=== PATIENT | female | born 1955 | race Caucasian/White ===

== ENCOUNTER 2016-10-01 12:43 | Inpatient (IN) | payer MEDICAID, OTHER ==
[~2016-10-01] VITALS: Ht 160 cm; Wt 135.4 kg
[2016-10-01] VITALS (18 sets, daily range): BP systolic 88–107; BP diastolic 44–59; O2SAT 98
[2016-10-01] MEDS ORDERED: ALBUTEROL 90 MCG/ACT 8GM HFA INHALER INH PRN (14:30)
[2016-10-01] MEDS ORDERED: DEXTROSE 50% 50 ML SYRINGE IV PRN (15:15)
[2016-10-01] MEDS ORDERED: GLUCAGON FOR INJ 1 MG VIAL (J1610) SC PRN (15:15)
[2016-10-01] MEDS ORDERED: GLUCOSE 4 GM CHEW TABLET PO PRN (15:15)
[2016-10-01 15:35] LABS: ABG BASE EXCESS -7.2 (-2.0-2.0); ABG PARTIAL PRESSURE CO2 35.1 mmHg (35.0-45.0); ABG PARTIAL PRESSURE O2 101.2 mmHg (75.0-100.0); ABG STANDARD HCO3 18.6 MEQ/L (22.0-26.0); ABG pH (ARTERIAL) 7.327 UNITS (7.350-7.450)
[2016-10-01] MEDS ORDERED: SYNT75TA PO (15:37)
[2016-10-01] MEDS ORDERED: GABA-282 PO (15:37)
[2016-10-01] MEDS ORDERED: METF500T PO (15:37)
[2016-10-01] MEDS ORDERED: ATOR1TAB21 PO (15:37)
[2016-10-01] MEDS ORDERED: ASPI81TA7 PO (15:37)
[2016-10-01] MEDS ORDERED: LOSA50TA20 PO (15:37)
[2016-10-01] MEDS ORDERED: OMEP40CA2 PO (15:37)
[2016-10-01] MEDS ORDERED: PIOG30TA4 PO (15:37)
[2016-10-01] MEDS ORDERED: HEPA50VL SC (15:44)
[2016-10-01] MEDS ORDERED: ZOSY3INJ2 IV (15:44)
[2016-10-01] MEDS ORDERED: INSURSD SC (15:44)
[2016-10-01] MEDS ORDERED: IPRASOL4 INH (15:44)
[2016-10-01] MEDS ORDERED: PROT40IN4 IV (15:44)
[2016-10-01] MEDS: IPRATROPIUM 0.5MG/ALBUTEROL 2.5MG INH SOL UD 3ML (DUONEB)(J7620) NEB SCH ×3 (16:03→23:29)
[2016-10-01 16:04] LABS: MEAN CORPUSCULAR HEMOGLOBIN 29.5 pg (27.0-33.0); MEAN CORPUSCULAR HGB CONC 32.7 g/dl (32.0-36.5); MEAN CORPUSCULAR VOLUME 90.4 fl (80.0-96.0); RED CELL DISTRIBUTION WIDTH 14.3 % (11.5-14.5); WHITE BLOOD COUNT 13.5 K/mm3 (4.0-10.0)
--- NOTE | 2016-10-01 16:05 | HPEPDOC ---
General Date of Admission Oct 01, 2016 at 14:47 Chief Complaint The patient is a 61-year-old female admitted with a reason for visit of Septic Shock / Pnemonia. History of Present Illness 61-year-old female with past medical history of hypertension, diabetes mellitus , dyslipidemia, hypothyroidism and morbid obesity was initially admitted at [facility] after she was found unresponsive at her home. According to reports from [facility], the patient stated that she remembers laying down on the floor to watch TV with her dog, and the next thing she remembers is the EMS personnel coming into her home. Upon arrival of EMS, the patient was apparently found with urine and feces covered clothing. The patient is a poor historian and does not recollect the exact events leading up to her hospitalization. However, the patient denied any suicidal, homicidal ideations, any ingestion of drugs or other substances, or any focal complaints of fevers, chills, chest pain, shortness of breath, abdominal pain, nausea or vomiting. At [facility], the patient was found to be hypothermic with a temperature of 92F, and slightly elevated creatine kinase markers. A chest x- ray was done which revealed small infiltrate in the right lower lobe. The patient was subsequently admitted for further management on 09/30. Overnight, the patient became increasingly hypotensive, requiring central line placement and vasopressor therapy. In addition, the patient became more obtunded and the patient was subsequently transferred to [facility] for a higher level of care. At this time, the patient does appear drowsy, however is arousable and answers questions appropriately when prompted repeatedly. Lab work and imaging have been ordered, and the patient will be admitted under the service of Dr. Soto for further evaluation and management of the patient's metabolic encephalopathy 2/2 sepsis. Home Medications Scheduled (Zosyn 3-0.375 gm) 1 Inj Inj 1 INJ IV Q6H (Reported) STARTED AT [facility] Albuterol/Ipratropium (Ipratropium [place]/Albut 0.5-2.5 (3) mg/3Ml) 1 Naz Naz 1 NAZ INH Q6H (Reported) STARTED AT [facility] Aspirin (Aspirin) 81 Mg Tab 81 MG PO DAILY (Reported) HOME MED Atorvastatin Calcium (Atorvastatin Calcium) 20 Mg Tab 20 MG PO QHS (Reported) HOME MED Gabapentin (Gabapentin) 300 Mg Cap 300 MG PO BID (Reported) HOME MED Heparin Sod (Porcine) (Heparin Sodium) 5,000 Unit/Ml Inj 5,000 UNIT SC Q12H ( Reported) STARTED AT [facility] Insulin Human Regular (Humulin R) 1 Units/0.01 Ml Soln 0 SC ACHS (Reported) PER SLIDING SCALE, STARTED AT [facility] Levothyroxine Sodium (Synthroid) 75 Mcg Tab 75 MCG PO DAILY (Reported) HOME MED Losartan Potassium (Losartan Potassium) 50 Mg Tab 50 MG PO DAILY (Reported) HOME MED Metformin Hydrochloride (Metformin HCl) 500 Mg Tab 1,500 MG PO DAILY (Reported ) HOME MED Omeprazole (Omeprazole) 40 Mg Cap 40 MG PO DAILY (Reported) HOME MED Pantoprazole Sodium (Protonix IV) 40 Mg Inj 40 MG IV DAILY (Reported) STARTED AT [facility] Pioglitazone Hydrochloride (Pioglitazone HCl) 30 Mg Tab 30 MG PO DAILY ( Reported) HOME MED Allergies Coded Allergies: No Known Allergies (Unverified , 10/01/16) Past Medical History Medical History As noted in HPI. Surgical History Total abdominal hysterectomy Family History Significant Family History: No pertinent family hx Social History * Smoker: Denies Alcohol: occationally Drugs: denies Review of Symptoms Other systems Unable to fully and reliably obtained secondary to patient's clinical condition. Physical Examination General Exam: Positive: Cooperative, No Acute Distress, Other (morbidly obese patient, appears to be drowsy, however does answer questions purposely when repeatedly prompted.) ENT Exam: Positive: Atraumatic, Other ENT (dry appearing mucous membranes) Neck Exam: Negative: JVD Chest Exam: Positive: Diminished Heart Exam: Positive: Normal S1, Normal S2, Rate Normal Telemetry: Positive: Sinus Abdomen Exam: Positive: Soft, Negative: Tenderness Extremity Exam: Negative: Tenderness Skin Exam: Positive: Other skin issue (patient noted to have multiple excoriations all over the skin including across the chest, under the breasts, and under the skin folds of the abdomen, and groin. In addition she also has excoriations noted on the lateral aspects of both knees bilaterally, as well as her feet which appear to have some wounds along the plantar and dorsal surface. No active purulent drainage or bleeding noted from the sites. However, there is some erythema surrounding the excoriations.) Vital Signs As noted in the EMR. Laboratory Data Labs 24H Laboratory Tests 2 10/01/16 15:19: 10/01/16 15:26: Arterial Blood pH 7.327L, Arterial Blood Partial Pressure CO2 35.1, Arterial Blood Partial Pressure O2 101.2H, Arterial Blood Total CO2 19.0L, Arterial Blood HCO3 18.0L, Arterial Blood Base Excess -7.2L, Arterial Blood Oxygen Saturation 97.5, Blood Gas Bicarbonate Standard 18.6L Microbiology Microbiology 10/01/16 Blood Culture, Received Pending 10/01/16 Blood Culture, Received Pending Plan / VTE VTE Prophylaxis Ordered?: Yes Plan Plan Sepsis possibly secondary to community-acquired pneumonia We will admit the patient to the ICU Chest x-ray from [facility] suggestive of right lower lobe infiltrate Patient recently requiring levophed at 8 g this a.m. at [facility]- however, she is off this at this time We will continue IV fluid hydration at 150 mL an hour Patient noted to have minimal urinary output since this a.m.-we will continue to monitor I's and O's Blood cultures unrevealing from [facility]. thus far, we will order a set of blood cultures, UA here as well GI neg for C. Diff, Resp Panel negative at [facility] Patient does have other possible sources of infection, which include multiple excoriations noted all over her body Empirically cover with vancomycin and Zosyn for now We will continue to monitor the patient's clinical condition Metabolic encephalopathy Possibly secondary to sepsis as outlined above However given the patient's morbid obesity, I do suspect that she may have underlying obstructive sleep apnea We will order an ABG here to see if she is retaining any CO2 TSH, ammonia levels within normal limits from lab work drawn in [facility] CT scan of the head with no acute findings from [facility] We will order an MRI of the brain to follow-up if the patient's mentation does not improve Diabetes mellitus Hemoglobin A1c noted to be 8.0 at [facility] Patient previously on oral hypoglycemics at home We will continue the patient on insulin sliding scale for now Dyslipidemia Takes statin at home Will withhold by mouth medications for now until the patient becomes more alert Hypertension We will hold antihypertensives at this time, as the patient has been running a low blood pressure requiring levophed this morning Hypothyroidism TSH noted to be within normal limits at [facility] We will continue levothyroxine intravenously here GI prophylaxis-Protonix DVT prophylaxis-heparin subcutaneous The patient will be admitted under the service of Dr. Soto, who will follow this patient starting 10/02 at 7 AM. CANDACE BROWN MD Oct 01, 2016 16:05
[2016-10-01 16:08] LABS: ALBUMIN/GLOBULIN RATIO 0.87 (1.00-1.93); BILIRUBIN,TOTAL 0.6 MG/DL (0.2-1.0); CALCIUM LEVEL 6.5 MG/DL (8.8-10.2); CREATININE FOR GFR 1.52 MG/DL (0.55-1.02); FREE T4 1.54 NG/DL (0.76-1.46); GLOMERULAR FILTRATION RATE 36.8 (>45); POTASSIUM SERUM 3.9 MEQ/L (3.5-5.1); TOTAL PROTEIN 4.3 GM/DL (6.4-8.2)
[2016-10-01] MEDS ORDERED: CALCIUM GLUCONATE 1,000 MG in D5W MINI-BAG PLUS 100 ML IV ONE (16:30)
--- NOTE | 2016-10-01 16:42 | PHACANCOPD ---
PHARMACY VANCOMYCIN DOSING Pt Demographics Demographics Patient Age:61 , Weight:130.900 , Gender: female Adjusted Body Weight Date: 10/01/16, Adjusted Body Weight: [83.8] Kg Events Past 24 Hours Events Past 24 Hours: YES: Change in CrCl, Elevation in WBC, NO: Dialysis, Diuretic Therapy, Fever, Other, Pending Diagnostics, Pending Procedures Vancomycin Vancomycin indication: sepsis Vancomycin Target Ranges: 15-20 mcg/ml Vancomycin Load Y/N: No Load Dose Date Time Vancomycin Load Dose: Date: Time: Vancomycin Dose Date: 10/01/16. Current Vancomycin Dose: [1g IV q12h @17] Intermittent Dosing?: No Labs Labs Item Value Date Time White Blood Count 13.5 K/mm3 H 10/01/16 1519 Creatinine 1.52 MG/DL H 10/01/16 1519 Vital Signs Label Value Date Time Patient Temperature 99.8 degrees F 10/01/16 1501 Temperature Source Skin 10/01/16 1501 Micro Microbiology 10/01/16 Blood Culture, Received Pending 10/01/16 Blood Culture, Received Pending Creatinine Clearance Date:10/01/16. Creatinine Clearance: [50 ml/min using adjusted BW]. Assessment and Plan Maintaining Current Dose?: Yes Reason for dose change: No Dose Change Pharmacist Note Pharmacist Note 3Date: 10/01/16. Pharmacist note: pt was transferred from [facility] for sepsis, she has been started on Zosyn and Vancomycin. Pt only received ~300mg of vancomycin IV prior to transfer to [facility]. I have started her 1g IV q12h dosing to start this afternoon. Pt does not have any medical hx at our facility. I will reassess her renal function tomorrow and adjust dosing/order troughs as necessary. Obi Atkins Pharm.D. Oct 01, 2016 16:42
[2016-10-01] MEDS: LEVOTHYROXINE 100 MCG (0.1MG) VIAL IV SCH (16:47)
[2016-10-01] MEDS: PIPERACILLIN/TAZOBACTAM SOD 3.375 GM in D5W MINI-BAG PLUS 50 ML IV SCH ×2 (16:50→22:30)
[2016-10-01] MEDS: NS 1,000 ML IV SCH ×2 (18:17→22:30)
[2016-10-01] MEDS: NOREPINEPHRINE BITARTRATE 8 MG in D5W 500 ML IV SCH (18:23)
[2016-10-01] MEDS: VANCOMYCIN HCL 1,000 MG, VIAL MATE ADAPTER 1 EACH in D5W 250 ML IV SCH (18:34)
[2016-10-01] MEDS: HumaLOG INSULIN (NovoLOG) PER UNIT SC SCH (19:26)
[2016-10-01] MEDS: NYSTATIN 100,000 UNITS/GM TOPICAL PWD 15 GM TOP SCH (22:29)
[2016-10-01] MEDS: HEPARIN SOD (PORCINE) 5000 UNITS/ML VIAL SC SCH (22:30)
[2016-10-02] VITALS (36 sets, daily range): BP systolic 76–116; BP diastolic 40–59; O2SAT 97–99
[2016-10-02] MEDS: HumaLOG INSULIN (NovoLOG) PER UNIT SC SCH ×5 (01:01→23:45)
[2016-10-02] MEDS: IPRATROPIUM 0.5MG/ALBUTEROL 2.5MG INH SOL UD 3ML (DUONEB)(J7620) NEB SCH ×6 (03:29→23:38)
[2016-10-02] MEDS: PIPERACILLIN/TAZOBACTAM SOD 3.375 GM in D5W MINI-BAG PLUS 50 ML IV SCH ×4 (04:08→21:24)
[2016-10-02] MEDS: NS 1,000 ML IV SCH ×2 (04:10→11:55)
[2016-10-02] MEDS: VANCOMYCIN HCL 1,000 MG, VIAL MATE ADAPTER 1 EACH in D5W 250 ML IV SCH ×2 (05:27→16:35)
[2016-10-02] MEDS: HEPARIN SOD (PORCINE) 5000 UNITS/ML VIAL SC SCH ×3 (05:27→21:23)
[2016-10-02 05:42] LABS: MEAN CORPUSCULAR HEMOGLOBIN 28.8 pg (27.0-33.0); MEAN CORPUSCULAR HGB CONC 32.1 g/dl (32.0-36.5); MEAN CORPUSCULAR VOLUME 89.7 fl (80.0-96.0); RED CELL DISTRIBUTION WIDTH 14.8 % (11.5-14.5); WHITE BLOOD COUNT 11.7 K/mm3 (4.0-10.0)
[2016-10-02 05:57] LABS: ALBUMIN 1.8 GM/DL (3.2-5.2); ALBUMIN/GLOBULIN RATIO 0.82 (1.00-1.93); BILIRUBIN,TOTAL 0.5 MG/DL (0.2-1.0); CALCIUM LEVEL 6.7 MG/DL (8.8-10.2); CREATININE FOR GFR 1.63 MG/DL (0.55-1.02); GLOMERULAR FILTRATION RATE 33.9 (>45); POTASSIUM SERUM 3.6 MEQ/L (3.5-5.1)
[2016-10-02 06:03] LABS: ABG BASE EXCESS -5.2 (-2.0-2.0); ABG HCO3 18.9 MEQ/L (22.0-26.0); ABG PARTIAL PRESSURE CO2 31.8 mmHg (35.0-45.0); ABG STANDARD HCO3 20.1 MEQ/L (22.0-26.0); ABG TOTAL CO2 19.9 MEQ/L (23.0-31.0); ABG pH (ARTERIAL) 7.392 UNITS (7.350-7.450)
--- NOTE | 2016-10-02 08:36 | REP ---
Clinical: Dyspnea. Pneumonia. Comparison: None. Findings: Right IJ line with tip in the SVC/right atrium. Cardiomegaly is suggested. No obvious focal consolidation along with scattered atelectasis cannot be excluded. No effusion. No pneumothorax. Skeletal structures grossly intact. Impression: Limited portable examination. Cannot exclude cardiomegaly or scattered atelectasis. Signed by Jesus Manuel Wilson MD 10/02/2016 08:28 A
[2016-10-02] MEDS: NYSTATIN 100,000 UNITS/GM TOPICAL PWD 15 GM TOP SCH ×2 (08:42→21:23)
[2016-10-02] MEDS: LEVOTHYROXINE 100 MCG (0.1MG) VIAL IV SCH (08:43)
[2016-10-02] MEDS: PANTOPRAZOLE 40MG INJ (PROTONIX) (C9113) IV SCH (08:43)
--- NOTE | 2016-10-02 09:45 | IPNPDOC ---
Subjective Date Seen The patient was seen on 10/02/16. Subjective Chief Complaint/HPI The patient is a 61-year-old female admitted with a reason for visit of Septic Shock / Pnemonia. Events since last encounter patient remains obtunded. sometimes opening eyes when spoken too, trying to localize pain with left hand not much movement on the right hand. BPs better this am will try to taper off norepinephrine. Objective Physical Examination General Exam: Positive: No Acute Distress, Other (obtunded. opening eyes when spoken to) Eye Exam: Positive: Conjunctiva & lids normal, PERRLA ENT Exam: Positive: Atraumatic, Mucous membr. moist/pink Neck Exam: Negative: JVD Chest Exam: Positive: Diminished, Rales, Wheezing Heart Exam: Positive: Normal S1, Normal S2, Rate Normal Telemetry: Positive: No significant arrhythmia Abdomen Exam: Positive: Other (abdominal fat fold with fungal infection), Soft , Negative: Tenderness Extremity Exam: Negative: Tenderness Skin Exam: Positive: Other skin issue (patient noted to have multiple excoriations all over the skin including across the chest, under the breasts, and under the skin folds of the abdomen, and groin. In addition she also has excoriations noted on the lateral aspects of both knees bilaterally, as well as her feet which appear to have some wounds along the plantar and dorsal surface. No active purulent drainage or bleeding noted from the sites. However, there is some erythema surrounding the excoriations.) Assessment /Plan Problems (1) Acute metabolic encephalopathy Status: Acute Problem Text: due to sepsis abg did not show any co2 retention will repeat in the pm. (2) Septic shock Status: Acute Problem Text: source on infection either lungs or skin will continue on zosyn and vanco and ivf. try to wean off NE. (3) Morbid obesity Status: Chronic (4) Acute kidney injury Status: Acute Problem Text: will continue to monitor intake and output. have no baseline creatinine at this point. (5) Diarrhea Status: Acute Problem Text: enteropathogenic e coli in GI panel . (6) Diabetes Status: Chronic Problem Text: lispro as per sliding scale. (7) Hyperlipidemia Status: Chronic (8) Hypothyroid Status: Chronic (9) Decubitus ulcer Status: Acute Problem Text: present since admission. just below both buttocks. stage 2 Plan/VTE VTE Prophylaxis Ordered?: Yes Plan/Urinary Catheter Reason for insertion/continuin: Critical Pt monitoring VS, I&O, [facility] Vital Signs/I&O Vital Signs Date Time Temp Pulse Resp B/P Pulse Ox O2 Delivery O2 Flow Rate FiO2 10/02/16 08:00 Nasal Cannula 2.0 10/02/16 07:41 98 10/02/16 06:30 103 109/52 10/02/16 04:00 99.0 16 I&O- Last 24 Hours up to 6 AM 10/02/16 06:00 Intake Total 2048.3 ml Output Total 900 ml Balance 1148.3 ml Laboratory Data 24H LABS Laboratory Tests 2 10/01/16 15:19: Blood Urea Nitrogen 49H, Creatinine 1.52H, Sodium Level 143, Potassium Level 3.9 , Chloride Level 109H, Carbon Dioxide Level 19L, Calcium Level 6.5L, Aspartate Amino Transf (AST/SGOT) 47H, Alanine Aminotransferase (ALT/SGPT) 74, Alkaline Phosphatase 69, Total Bilirubin 0.6, Triglycerides Level 61, Cholesterol Level 105, HDL Cholesterol 67, LDL Cholesterol 25.8, Total Protein 4.3L, Albumin 2.0L , Albumin/Globulin Ratio 0.87L, Ammonia 18, Anion Gap 15, Cholesterol/HDL Ratio 1.567, Estimated Mean Plasma Glucose 194H, Free Thyroxine 1.54H, Free Triiodothyronine 0.9L, Glomerular Filtration Rate 36.8L, Hemoglobin A1c 8.4H, Lactic Acid Level 0.9, Magnesium Level 2.0, Non-HDL Cholesterol (LDL + VLDL) 38 , Thyroid Stimulating Hormone (TSH) 0.700 10/01/16 15:26: Arterial Blood pH 7.327L, Arterial Blood Partial Pressure CO2 35.1, Arterial Blood Partial Pressure O2 101.2H, Arterial Blood Total CO2 19.0L, Arterial Blood HCO3 18.0L, Arterial Blood Base Excess -7.2L, Arterial Blood Oxygen Saturation 97.5, Blood Gas Bicarbonate Standard 18.6L 10/01/16 16:13: Urine Amorphous Sediment SMALLH, Urine Appearance CLOUDYH, Urine Color KENNEDY, Urine pH 5.0, Urine Specific [place] 1.021, Urine Protein 1+H, Urine Glucose (UA ) 1+H, Urine Ketones TRACEH, Urine Urobilinogen 4.0H, Urine Bilirubin 1+H, Urine Leukocyte Esterase TRACEH, Urine Bacteria (Auto) 1+H, Urine Blood 2+H, Urine Calcium Carbonate Cryst(Auto) , Urine Calcium Oxalate Cryst (Auto) , Urine Calcium Phosphate Suha (Auto) , Urine Cellular Casts , Urine Cystine Crystals , Urine Granular Casts (Auto) , Urine Hyaline Casts (Auto) 0, Urine Leucine Crystals , Urine Mucus (Auto) SMALL, Urine Nitrite NEGATIVE, Urine Oval Fat Bodies (Auto) , Urine RBC (Auto) 16H, Urine Renal Epithelial Cells , Urine Sperm (Auto) , Urine Squamous Epithelial Cells 1, Urine Transitional Epithelial Cells , Urine Trichomonas (Auto) , Urine Triple Phosphate Cryst (Auto) , Urine Tyrosine Crystals , Urine Uric Acid Crystals (Auto) , Urine WBC (Auto) 19H, Urine Waxy Casts (Auto) , Urine Yeast-Like Cells (Auto) 10/01/16 18:32: Bedside Glucose (Misc Panel) 225H 10/01/16 20:57: Urine Random Creatinine 135.0, Urine Random Sodium 10 10/02/16 00:15: Bedside Glucose (Misc Panel) 255H 10/02/16 05:23: Bedside Glucose (Misc Panel) 269H 10/02/16 05:26: Blood Urea Nitrogen 52H, Creatinine 1.63H, Sodium Level 144, Potassium Level 3.6 , Chloride Level 112H, Carbon Dioxide Level 22, Calcium Level 6.7L, Aspartate Amino Transf (AST/SGOT) 38H, Alanine Aminotransferase (ALT/SGPT) 61, Alkaline Phosphatase 64, Total Bilirubin 0.5, Total Protein 4.0L, Albumin 1.8L, Albumin/ Globulin Ratio 0.82L, Anion Gap 10, Glomerular Filtration Rate 33.9L 10/02/16 05:55: Arterial Blood pH 7.392, Arterial Blood Partial Pressure CO2 31.8L, Arterial Blood Partial Pressure O2 77.0, Arterial Blood Total CO2 19.9L, Arterial Blood HCO3 18.9L, Arterial Blood Base Excess -5.2L, Arterial Blood Oxygen Saturation 95.3, Blood Gas Bicarbonate Standard 20.1L CBC/BMP Laboratory Tests 10/01/16 15:19 Calcium Level 6.5 L, Aspartate Amino Transf (AST/SGOT) 47 H, Alanine Aminotransferase (ALT/SGPT) 74, Alkaline Phosphatase 69, Total Bilirubin 0.6, Triglycerides Level 61, Cholesterol Level 105, HDL Cholesterol 67, LDL Cholesterol 25.8, Total Protein 4.3 L, Albumin 2.0 L, Red Blood Count 3.58 L, Mean Corpuscular Volume 90.4, Mean Corpuscular Hemoglobin 29.5, Mean Corpuscular Hemoglobin Concent 32.7, Red Cell Distribution Width 14.3 10/02/16 05:26 Calcium Level 6.7 L, Aspartate Amino Transf (AST/SGOT) 38 H, Alanine Aminotransferase (ALT/SGPT) 61, Alkaline Phosphatase 64, Total Bilirubin 0.5, Total Protein 4.0 L, Albumin 1.8 L, Red Blood Count 3.38 L, Mean Corpuscular Volume 89.7, Mean Corpuscular Hemoglobin 28.8, Mean Corpuscular Hemoglobin Concent 32.1, Red Cell Distribution Width 14.8 H Microbiology Microbiology 10/01/16 Blood Culture, Received Pending 10/01/16 Blood Culture, Received Pending 10/01/16 Gastrointestinal Tract Panel (PCR) - Final, Complete Enteropathogenic E.coli 10/01/16 Urine Culture, Received Pending 10/01/16 Gram Stain, Received Pending 10/01/16 Wound Culture, Received Pending TOD BISWAS MD Oct 02, 2016 09:45
[2016-10-02] MEDS: NOREPINEPHRINE BITARTRATE 8 MG in D5W 500 ML IV SCH (16:39)
[2016-10-02 17:15] LABS: ABG BASE EXCESS -3.8 (-2.0-2.0); ABG DEVICE NASAL CANN; ABG HCO3 21.1 MEQ/L (22.0-26.0); ABG PARTIAL PRESSURE CO2 37.7 mmHg (35.0-45.0); ABG PARTIAL PRESSURE O2 79.9 mmHg (75.0-100.0); ABG STANDARD HCO3 21.3 MEQ/L (22.0-26.0); ABG TOTAL CO2 22.3 MEQ/L (23.0-31.0); ABG pH (ARTERIAL) 7.366 UNITS (7.350-7.450)
[2016-10-02] MEDS ORDERED: SODIUM CHLORIDE 0.9% INJ 10 ML SYR IV PRN (18:00)
[2016-10-02] MEDS ORDERED: SLF 3 ML SYR IV PRN (18:00)
[2016-10-02] MEDS: SLF 3 ML SYR IV SCH (21:24)
[2016-10-02] MEDS: SODIUM CHLORIDE 0.9% INJ 10 ML SYR IV SCH (21:24)
[2016-10-03] VITALS (12 sets, daily range): BP systolic 93–116; BP diastolic 48–67
[2016-10-03] MEDS: NS 1,000 ML IV SCH (03:12)
[2016-10-03 03:30] LABS: MEAN CORPUSCULAR HEMOGLOBIN 28.5 pg (27.0-33.0); MEAN CORPUSCULAR HGB CONC 32.6 g/dl (32.0-36.5); MEAN CORPUSCULAR VOLUME 87.4 fl (80.0-96.0); RED CELL DISTRIBUTION WIDTH 14.9 % (11.5-14.5); WHITE BLOOD COUNT 10.5 K/mm3 (4.0-10.0)
[2016-10-03] MEDS: IPRATROPIUM 0.5MG/ALBUTEROL 2.5MG INH SOL UD 3ML (DUONEB)(J7620) NEB SCH ×5 (03:38→19:41)
[2016-10-03] MEDS: PIPERACILLIN/TAZOBACTAM SOD 3.375 GM in D5W MINI-BAG PLUS 50 ML IV SCH ×4 (03:52→22:01)
[2016-10-03 03:53] LABS: ALBUMIN 1.7 GM/DL (3.2-5.2); ALBUMIN/GLOBULIN RATIO 0.68 (1.00-1.93); BILIRUBIN,TOTAL 0.4 MG/DL (0.2-1.0); CALCIUM LEVEL 7.2 MG/DL (8.8-10.2); CREATININE FOR GFR 1.17 MG/DL (0.55-1.02); GLOMERULAR FILTRATION RATE 49.7 (>45); POTASSIUM SERUM 4.2 MEQ/L (3.5-5.1); TOTAL PROTEIN 4.2 GM/DL (6.4-8.2)
--- NOTE | 2016-10-03 04:08 | PHACANCOPD ---
PHARMACY VANCOMYCIN DOSING Pt Demographics Demographics Patient Age:61 , Weight:132.200 , Gender: female Adjusted Body Weight Date: 10/01/16, Adjusted Body Weight: [84.24] Kg Vancomycin Vancomycin indication: sepsis Vancomycin Target Ranges: 15-20 mcg/ml Vancomycin Load Y/N: No Load Dose Date Time Vancomycin Load Dose: Date: Time: Vancomycin Dose Date: 10/03/16. Current Vancomycin Dose: [750mg iv q12h@0900] Date: 10/01/16. Current Vancomycin Dose: [1g IV q12h @17] Intermittent Dosing?: No Labs Micro Microbiology 10/01/16 Blood Culture - Preliminary, Resulted No growth after 24 hours . All specim... 10/01/16 Blood Culture - Preliminary, Resulted No growth after 24 hours . All specim... 10/01/16 Gastrointestinal Tract Panel (PCR) - Final, Complete Enteropathogenic E.coli 10/01/16 Urine Culture, Received Pending 10/01/16 Gram Stain - Final, Resulted 10/01/16 Wound Culture, Resulted Pending Creatinine Clearance Date:10/01/16. Creatinine Clearance: [50 ml/min using adjusted BW]. Assessment and Plan Maintaining Current Dose?: No Reason for dose change: Trough too high Pharmacist Note Pharmacist Note Date: 10/03/16. Pharmacist note:Vancomycin trough drawn@0400 this am reported as 21.6 indicating a bit of accumulation-SCR is improving at 1.17 (calculateed CRCL now 65.5)Will adjust Vancomycin dose for now to 750mg IV Q12H to begin at 0900 this am-will continue to follow levels and labs 3Date: 10/01/16. Pharmacist note: pt was transferred from [facility] for sepsis, she has been started on Zosyn and Vancomycin. Pt only received ~300mg of vancomycin IV prior to transfer to [facility]. I have started her 1g IV q12h dosing to start this afternoon. Pt does not have any medical hx at our facility. I will reassess her renal function tomorrow and adjust dosing/order troughs as necessary. YUKO RANDALL PHARMACY Oct 03, 2016 04:08
[2016-10-03] MEDS: SLF 3 ML SYR IV SCH ×3 (05:14→22:00)
[2016-10-03] MEDS: SODIUM CHLORIDE 0.9% INJ 10 ML SYR IV SCH ×3 (05:14→22:00)
[2016-10-03] MEDS: HEPARIN SOD (PORCINE) 5000 UNITS/ML VIAL SC SCH ×3 (05:33→22:02)
[2016-10-03] MEDS: HumaLOG INSULIN (NovoLOG) PER UNIT SC SCH ×4 (05:34→20:30)
[2016-10-03 05:43] LABS: ABG BASE EXCESS -1.3 (-2.0-2.0); ABG HCO3 23.2 MEQ/L (22.0-26.0); ABG PARTIAL PRESSURE CO2 38.3 mmHg (35.0-45.0); ABG PARTIAL PRESSURE O2 88.1 mmHg (75.0-100.0); ABG STANDARD HCO3 23.4 MEQ/L (22.0-26.0); ABG TOTAL CO2 24.4 MEQ/L (23.0-31.0); ABG pH (ARTERIAL) 7.401 UNITS (7.350-7.450)
--- NOTE | 2016-10-03 08:46 | REP ---
Clinical: Pneumonia. Follow-up. Comparison: 10/02/2016. Findings: Stable cardiomegaly. Right IJ line with tip in the SVC. Trace right basilar atelectasis cannot be excluded. No obvious effusion or pneumothorax. Skeletal structures stable. Impression: Trace basilar atelectasis. Signed by Jesus Manuel Wilson MD 10/03/2016 08:38 A
[2016-10-03] MEDS: PANTOPRAZOLE 40MG INJ (PROTONIX) (C9113) IV SCH (09:01)
[2016-10-03] MEDS: LEVOTHYROXINE 100 MCG (0.1MG) VIAL IV SCH (09:01)
[2016-10-03] MEDS: VANCOMYCIN HCL 750 MG, VIAL MATE ADAPTER 1 EACH in D5W 250 ML IV SCH ×2 (09:01→20:37)
[2016-10-03] MEDS: NYSTATIN 100,000 UNITS/GM TOPICAL PWD 15 GM TOP SCH ×2 (09:02→20:38)
--- NOTE | 2016-10-03 11:16 | IPNPDOC ---
Subjective Date Seen The patient was seen on 10/03/16. Subjective Chief Complaint/HPI The patient is a 61-year-old female admitted with a reason for visit of Septic Shock / Pnemonia. Events since last encounter patient awake today answering questions and following commands, still alittle confused. weakness of the right upper extremity and right lower extremity compared to the left though she says its not new. Denies any prior stroke. no fever or chills, no chest pain or shortness of breath. Objective Physical Examination General Exam: Positive: Alert, Cooperative, No Acute Distress Eye Exam: Positive: Conjunctiva & lids normal, PERRLA ENT Exam: Positive: Atraumatic, Mucous membr. moist/pink Neck Exam: Negative: JVD Chest Exam: Positive: Diminished, Rales, Wheezing Heart Exam: Positive: Normal S1, Normal S2, Rate Normal Telemetry: Positive: No significant arrhythmia Abdomen Exam: Positive: Other (abdominal fat fold with fungal infection), Soft , Negative: Tenderness Extremity Exam: Positive: Edema, Negative: Tenderness Skin Exam: Positive: Other skin issue (patient noted to have multiple excoriations all over the skin including across the chest, under the breasts, and under the skin folds of the abdomen, and groin. In addition she also has excoriations noted on the lateral aspects of both knees bilaterally, as well as her feet which appear to have some wounds along the plantar and dorsal surface. No active purulent drainage or bleeding noted from the sites. However, there is some erythema surrounding the excoriations.) Assessment /Plan Problems (1) Acute metabolic encephalopathy Status: Acute Problem Text: due to sepsis abg did not show any co2 retention (2) Septic shock Status: Acute Problem Text: source on infection either lungs or skin will continue on zosyn and vanco Off NE still last night. (3) Morbid obesity Status: Chronic (4) Acute kidney injury Status: Acute Problem Text: will continue to monitor intake and output. have no baseline creatinine at this point. (5) Diarrhea Status: Acute Problem Text: enteropathogenic e coli in GI panel . (6) Diabetes Status: Chronic Problem Text: lispro as per sliding scale. (7) Hyperlipidemia Status: Chronic (8) Hypothyroid Status: Chronic (9) Decubitus ulcer Status: Acute Problem Text: present since admission. just below both buttocks. stage 2 Plan/VTE VTE Prophylaxis Ordered?: Yes Plan/Urinary Catheter Reason for insertion/continuin: Critical Pt monitoring VS, I&O, 24H, [facility] Vital Signs/I&O Vital Signs Date Time Temp Pulse Resp B/P Pulse Ox O2 Delivery O2 Flow Rate FiO2 10/03/16 10:00 110 24 99/57 96 Room Air 10/03/16 09:00 1.0 10/03/16 08:00 99.2 I&O- Last 24 Hours up to 6 AM 10/03/16 06:00 Intake Total 2650 ml Output Total 1635 ml Balance 1015 ml Laboratory Data 24H LABS Laboratory Tests 2 10/02/16 11:46: Bedside Glucose (Misc Panel) 254H 10/02/16 17:01: Arterial Blood pH 7.366, Arterial Blood Partial Pressure CO2 37.7, Arterial Blood Partial Pressure O2 79.9, Arterial Blood Total CO2 22.3L, Arterial Blood HCO3 21.1L, Arterial Blood Base Excess -3.8L, Arterial Blood Oxygen Saturation 95.7, Blood Gas Bicarbonate Standard 21.3L, Oxygen Delivery Device NASAL RAN 10/02/16 17:45: Bedside Glucose (Misc Panel) 223H 10/02/16 23:32: Bedside Glucose (Misc Panel) 232H 10/03/16 03:16: Blood Urea Nitrogen 44H, Creatinine 1.17H, Sodium Level 147H, Potassium Level 4.2, Chloride Level 113H, Carbon Dioxide Level 25, Calcium Level 7.2L, Aspartate Amino Transf (AST/SGOT) 46H, Alanine Aminotransferase (ALT/SGPT) 62, Alkaline Phosphatase 74, Total Bilirubin 0.4, Total Protein 4.2L, Albumin 1.7L, Albumin/Globulin Ratio 0.68L, Anion Gap 9, Glomerular Filtration Rate 49.7, Vancomycin Level Trough 21.6H 10/03/16 05:36: Arterial Blood pH 7.401, Arterial Blood Partial Pressure CO2 38.3, Arterial Blood Partial Pressure O2 88.1, Arterial Blood Total CO2 24.4, Arterial Blood HCO3 23.2, Arterial Blood Base Excess -1.3, Arterial Blood Oxygen Saturation 97.4, Arterial Blood Gas Puncture Site LT RADIAL, Blood Gas Bicarbonate Standard 23.4 CBC/BMP Laboratory Tests 10/03/16 03:16 Calcium Level 7.2 L, Aspartate Amino Transf (AST/SGOT) 46 H, Alanine Aminotransferase (ALT/SGPT) 62, Alkaline Phosphatase 74, Total Bilirubin 0.4, Total Protein 4.2 L, Albumin 1.7 L, Red Blood Count 3.39 L, Mean Corpuscular Volume 87.4, Mean Corpuscular Hemoglobin 28.5, Mean Corpuscular Hemoglobin Concent 32.6, Red Cell Distribution Width 14.9 H Microbiology Microbiology 10/01/16 Blood Culture - Preliminary, Resulted No growth after 24 hours . All specim... 10/01/16 Blood Culture - Preliminary, Resulted No growth after 24 hours . All specim... 10/01/16 Gastrointestinal Tract Panel (PCR) - Final, Complete Enteropathogenic E.coli 10/01/16 Urine Culture - Final, Complete 10/01/16 Gram Stain - Final, Resulted 10/01/16 Wound Culture, Resulted Pending TOD BISWAS MD Oct 03, 2016 11:16
[2016-10-04] VITALS (8 sets, daily range): BP systolic 122–143; BP diastolic 58–71
[2016-10-04] MEDS: IPRATROPIUM 0.5MG/ALBUTEROL 2.5MG INH SOL UD 3ML (DUONEB)(J7620) NEB SCH ×6 (00:24→19:22)
[2016-10-04] MEDS: PIPERACILLIN/TAZOBACTAM SOD 3.375 GM in D5W MINI-BAG PLUS 50 ML IV SCH ×2 (03:58→10:12)
[2016-10-04] MEDS: HEPARIN SOD (PORCINE) 5000 UNITS/ML VIAL SC SCH ×3 (05:33→21:53)
[2016-10-04] MEDS: LEVOTHYROXINE 0.0375MG (37.5MCG) PER 1/2 TABLET PO SCH (05:33)
[2016-10-04] MEDS: SODIUM CHLORIDE 0.9% INJ 10 ML SYR IV SCH ×3 (05:34→21:54)
[2016-10-04] MEDS: SLF 3 ML SYR IV SCH ×3 (05:34→22:29)
[2016-10-04 05:40] LABS: MEAN CORPUSCULAR HEMOGLOBIN 28.5 pg (27.0-33.0); MEAN CORPUSCULAR HGB CONC 32.4 g/dl (32.0-36.5); MEAN CORPUSCULAR VOLUME 87.9 fl (80.0-96.0); RED CELL DISTRIBUTION WIDTH 14.9 % (11.5-14.5); WHITE BLOOD COUNT 7.8 K/mm3 (4.0-10.0)
[2016-10-04 06:02] LABS: ALBUMIN 1.8 GM/DL (3.2-5.2); ALBUMIN/GLOBULIN RATIO 0.56 (1.00-1.93); ALKALINE PHOSPHATASE 77 U/L (45-117); ALT/SGPT 54 U/L (12-78); ANION GAP 8 MEQ/L (8-16); AST/SGOT 40 U/L (15-37); BILIRUBIN,TOTAL 0.4 MG/DL (0.2-1.0); BLOOD UREA NITROGEN 24 MG/DL (7-18); CALCIUM LEVEL 7.9 MG/DL (8.8-10.2); CARBON DIOXIDE LEVEL 25 MEQ/L (21-32); CHLORIDE LEVEL 107 MEQ/L (98-107); CREATININE FOR GFR 0.84 MG/DL (0.55-1.02); GLOMERULAR FILTRATION RATE > 60.0 (>45); GLUCOSE, FASTING 257 MG/DL (80-110); POTASSIUM SERUM 3.7 MEQ/L (3.5-5.1); SODIUM LEVEL 140 MEQ/L (136-145)
[2016-10-04] MEDS: HumaLOG INSULIN (NovoLOG) PER UNIT SC SCH ×4 (07:39→22:41)
--- NOTE | 2016-10-04 08:40 | REP ---
Clinical: Follow up pneumonia. Comparison: 10/03/2016. Findings: Perihilar and basilar atelectasis cannot be excluded. Mediastinum and cardiac silhouette stable. No obvious effusion. No pneumothorax. Skeletal structures stable. Impression: Cannot exclude perihilar or basilar atelectasis versus mild pulmonary vascular congestion. Signed by Jesus Manuel Wilson MD 10/04/2016 08:31 A
[2016-10-04] MEDS: VANCOMYCIN HCL 750 MG, VIAL MATE ADAPTER 1 EACH in D5W 250 ML IV SCH ×2 (08:48→22:29)
[2016-10-04] MEDS: PANTOPRAZOLE 40MG INJ (PROTONIX) (C9113) IV SCH (08:48)
[2016-10-04] MEDS: NYSTATIN 100,000 UNITS/GM TOPICAL PWD 15 GM TOP SCH ×2 (08:49→21:55)
--- NOTE | 2016-10-04 14:17 | IPNPDOC ---
Subjective Date Seen The patient was seen on 10/04/16. Subjective Chief Complaint/HPI The patient is a 61-year-old female admitted with a reason for visit of Septic Shock / Pnemonia. Events since last encounter pt seen and examined, doing well, awake, alert oriented X3 Objective Physical Examination General Exam: Positive: No Acute Distress, Other (obtunded. opening eyes when spoken to) Eye Exam: Positive: Conjunctiva & lids normal, PERRLA ENT Exam: Positive: Atraumatic, Mucous membr. moist/pink Neck Exam: Negative: JVD Chest Exam: Positive: Diminished, Rales, Wheezing Heart Exam: Positive: Normal S1, Normal S2, Rate Normal Telemetry: Positive: No significant arrhythmia Abdomen Exam: Positive: Other (abdominal fat fold with fungal infection), Soft , Negative: Tenderness Extremity Exam: Negative: Tenderness Skin Exam: Positive: Other skin issue (patient noted to have multiple excoriations all over the skin including across the chest, under the breasts, and under the skin folds of the abdomen, and groin. In addition she also has excoriations noted on the lateral aspects of both knees bilaterally, as well as her feet which appear to have some wounds along the plantar and dorsal surface. No active purulent drainage or bleeding noted from the sites. However, there is some erythema surrounding the excoriations.) Assessment /Plan Problems (1) Acute metabolic encephalopathy Status: Resolved Problem Text: * due to sepsis * abg did not show any co2 retention (2) Septic shock Status: Acute Response to Treatment: Improving Problem Text: * sputum culture positive for e facialis and proteus * will change antibiotics to ampicillin (3) Morbid obesity Status: Chronic (4) Acute kidney injury Status: Resolved (5) Diarrhea Status: Acute Problem Text: enteropathogenic e coli in GI panel . (6) Diabetes Status: Chronic Problem Text: lispro as per sliding scale. (7) Hyperlipidemia Status: Chronic (8) Hypothyroid Status: Chronic (9) Decubitus ulcer Status: Acute Problem Text: present since admission. just below both buttocks. stage 2 Plan/VTE VTE Prophylaxis Ordered?: Yes Plan/Urinary Catheter Reason for insertion/continuin: Critical Pt monitoring VS, I&O, 24H, Fishbone Vital Signs/I&O Vital Signs Date Time Temp Pulse Resp B/P Pulse Ox O2 Delivery O2 Flow Rate FiO2 10/04/16 12:00 100.2 110 25 126/67 95 Room Air 10/03/16 12:00 I&O- Last 24 Hours up to 6 AM 10/04/16 06:00 Intake Total 3340 ml Output Total 2840 ml Balance 500 ml Laboratory Data 24H LABS Laboratory Tests 2 10/03/16 17:13: Bedside Glucose (Misc Panel) 209H 10/03/16 20:22: Bedside Glucose (Misc Panel) 215H 10/04/16 05:30: Blood Urea Nitrogen 24H, Creatinine 0.84, Sodium Level 140, Potassium Level 3.7 , Chloride Level 107, Carbon Dioxide Level 25, Calcium Level 7.9L, Aspartate Amino Transf (AST/SGOT) 40H, Alanine Aminotransferase (ALT/SGPT) 54, Alkaline Phosphatase 77, Total Bilirubin 0.4, Total Protein 5.0L, Albumin 1.8L, Albumin/ Globulin Ratio 0.56L, Anion Gap 8, Glomerular Filtration Rate > 60.0 10/04/16 11:36: Bedside Glucose (Misc Panel) 280H CBC/BMP Laboratory Tests 10/04/16 05:30 Calcium Level 7.9 L, Aspartate Amino Transf (AST/SGOT) 40 H, Alanine Aminotransferase (ALT/SGPT) 54, Alkaline Phosphatase 77, Total Bilirubin 0.4, Total Protein 5.0 L, Albumin 1.8 L, Red Blood Count 3.30 L, Mean Corpuscular Volume 87.9, Mean Corpuscular Hemoglobin 28.5, Mean Corpuscular Hemoglobin Concent 32.4, Red Cell Distribution Width 14.9 H Microbiology Microbiology 10/01/16 Blood Culture - Preliminary, Resulted No Growth after 48 hours. All Specime... 10/01/16 Blood Culture - Preliminary, Resulted No Growth after 48 hours. All Specime... 10/03/16 Clostridium difficile (PCR) - Final, Complete 10/01/16 Gastrointestinal Tract Panel (PCR) - Final, Complete Enteropathogenic E.coli 10/01/16 Urine Culture - Final, Complete 10/01/16 Gram Stain - Final, Complete 10/01/16 Wound Culture - Final, Complete Proteus Mirabilis Enterococcus Faecalis KIKE THAKUR DO Oct 04, 2016 14:16
[2016-10-04] MEDS: AMPICILLIN 250 MG CAP PO SCH ×3 (15:56→18:16)
[2016-10-04] MEDS: ACETAMINOPHEN TAB 650MG DOSE (2X325MG) PO PRN (17:47)
[2016-10-05] MEDS: IPRATROPIUM 0.5MG/ALBUTEROL 2.5MG INH SOL UD 3ML (DUONEB)(J7620) NEB SCH ×9 (03:41→23:18)
[2016-10-05] MEDS: SODIUM CHLORIDE 0.9% INJ 10 ML SYR IV SCH ×3 (05:23→19:55)
[2016-10-05] MEDS: SLF 3 ML SYR IV SCH ×3 (05:23→22:00)
[2016-10-05] MEDS: HEPARIN SOD (PORCINE) 5000 UNITS/ML VIAL SC SCH ×3 (05:23→22:33)
[2016-10-05 05:32] LABS: MEAN CORPUSCULAR HEMOGLOBIN 28.8 pg (27.0-33.0); MEAN CORPUSCULAR HGB CONC 33.1 g/dl (32.0-36.5); MEAN CORPUSCULAR VOLUME 87.1 fl (80.0-96.0); RED CELL DISTRIBUTION WIDTH 14.7 % (11.5-14.5); WHITE BLOOD COUNT 7.6 K/mm3 (4.0-10.0)
[2016-10-05 05:58] LABS: ALBUMIN 1.8 GM/DL (3.2-5.2); ALBUMIN/GLOBULIN RATIO 0.53 (1.00-1.93); ALKALINE PHOSPHATASE 77 U/L (45-117); ALT/SGPT 54 U/L (12-78); ANION GAP 7 MEQ/L (8-16); AST/SGOT 48 U/L (15-37); BILIRUBIN,TOTAL 0.4 MG/DL (0.2-1.0); BLOOD UREA NITROGEN 17 MG/DL (7-18); CALCIUM LEVEL 8.3 MG/DL (8.8-10.2); CARBON DIOXIDE LEVEL 28 MEQ/L (21-32); CHLORIDE LEVEL 106 MEQ/L (98-107); CREATININE FOR GFR 0.74 MG/DL (0.55-1.02); GLOMERULAR FILTRATION RATE > 60.0 (>45); GLUCOSE, FASTING 219 MG/DL (80-110); POTASSIUM SERUM 3.7 MEQ/L (3.5-5.1); SODIUM LEVEL 141 MEQ/L (136-145); TOTAL PROTEIN 5.2 GM/DL (6.4-8.2)
[2016-10-05 06:00] VITALS: BP 135/68
[2016-10-05] MEDS: LEVOTHYROXINE 0.0375MG (37.5MCG) PER 1/2 TABLET PO SCH (06:58)
--- NOTE | 2016-10-05 08:10 | REP ---
Clinical: Chest pain. Pneumonia. Comparison: 10/04/2016. Findings: Mediastinum and cardiac silhouette are stable. Right central venous catheter with tip in the right atrium. Trace right basilar atelectasis suggested. No further consolidation, effusion, or pneumothorax identified. Skeletal structures stable. Impression: Trace right basilar atelectasis. Signed by Jesus Manuel Wilosn MD 10/05/2016 08:02 A
[2016-10-05] MEDS: PANTOPRAZOLE 40MG INJ (PROTONIX) (C9113) IV SCH (08:23)
[2016-10-05] MEDS: VANCOMYCIN HCL 750 MG, VIAL MATE ADAPTER 1 EACH in D5W 250 ML IV SCH (08:23)
[2016-10-05] MEDS: HumaLOG INSULIN (NovoLOG) PER UNIT SC SCH ×4 (08:24→21:00)
[2016-10-05] MEDS: NYSTATIN 100,000 UNITS/GM TOPICAL PWD 15 GM TOP SCH ×2 (08:24→21:39)
[2016-10-05] MEDS: ACETAMINOPHEN TAB 650MG DOSE (2X325MG) PO PRN (13:34)
[2016-10-05 14:00] VITALS: BP 151/77
[2016-10-05] MEDS: VANCOMYCIN HCL 1,000 MG, VIAL MATE ADAPTER 1 EACH in D5W 250 ML IV SCH (21:39)
[2016-10-05 22:00] VITALS: BP 155/80
[2016-10-06] MEDS: IPRATROPIUM 0.5MG/ALBUTEROL 2.5MG INH SOL UD 3ML (DUONEB)(J7620) NEB SCH ×6 (03:16→23:11)
[2016-10-06] MEDS: HEPARIN SOD (PORCINE) 5000 UNITS/ML VIAL SC SCH ×3 (05:10→21:09)
[2016-10-06] MEDS: SODIUM CHLORIDE 0.9% INJ 10 ML SYR IV SCH ×3 (05:10→21:09)
[2016-10-06 05:24] LABS: MEAN CORPUSCULAR HEMOGLOBIN 28.6 pg (27.0-33.0); MEAN CORPUSCULAR HGB CONC 32.7 g/dl (32.0-36.5); MEAN CORPUSCULAR VOLUME 87.6 fl (80.0-96.0); RED CELL DISTRIBUTION WIDTH 14.6 % (11.5-14.5); WHITE BLOOD COUNT 8.4 K/mm3 (4.0-10.0)
[2016-10-06 06:00] VITALS: BP 128/67
[2016-10-06] MEDS: SLF 3 ML SYR IV SCH ×4 (06:00→22:00)
[2016-10-06] MEDS: LEVOTHYROXINE 0.0375MG (37.5MCG) PER 1/2 TABLET PO SCH (06:01)
[2016-10-06 06:15] LABS: ALBUMIN 1.9 GM/DL (3.2-5.2); ALKALINE PHOSPHATASE 80 U/L (45-117); ALT/SGPT 64 U/L (12-78); ANION GAP 12 MEQ/L (8-16); AST/SGOT 66 U/L (15-37); BILIRUBIN,TOTAL 0.4 MG/DL (0.2-1.0); BLOOD UREA NITROGEN 13 MG/DL (7-18); CALCIUM LEVEL 7.7 MG/DL (8.8-10.2); CARBON DIOXIDE LEVEL 24 MEQ/L (21-32); CHLORIDE LEVEL 106 MEQ/L (98-107); CREATININE FOR GFR 0.75 MG/DL (0.55-1.02); GLOMERULAR FILTRATION RATE > 60.0 (>45); GLUCOSE, FASTING 213 MG/DL (80-110); POTASSIUM SERUM 3.7 MEQ/L (3.5-5.1); SODIUM LEVEL 142 MEQ/L (136-145); TOTAL PROTEIN 4.6 GM/DL (6.4-8.2)
--- NOTE | 2016-10-06 08:22 | IPNPDOC ---
Subjective Date Seen The patient was seen on 10/05/16. Subjective Chief Complaint/HPI The patient is a 61-year-old female admitted with a reason for visit of Septic Shock / Pnemonia. Events since last encounter pt seen and examined, still confused, Constitutional: Denies: Chills, Fever, Night Sweats Objective Physical Examination General Exam: Positive: No Acute Distress, Other (obtunded. opening eyes when spoken to) Eye Exam: Positive: Conjunctiva & lids normal, PERRLA ENT Exam: Positive: Atraumatic, Mucous membr. moist/pink Neck Exam: Negative: JVD Chest Exam: Positive: Diminished, Rales, Wheezing Heart Exam: Positive: Normal S1, Normal S2, Rate Normal Telemetry: Positive: No significant arrhythmia Abdomen Exam: Positive: Other (abdominal fat fold with fungal infection), Soft , Negative: Tenderness Extremity Exam: Negative: Tenderness Skin Exam: Positive: Other skin issue (patient noted to have multiple excoriations all over the skin including across the chest, under the breasts, and under the skin folds of the abdomen, and groin. In addition she also has excoriations noted on the lateral aspects of both knees bilaterally, as well as her feet which appear to have some wounds along the plantar and dorsal surface. No active purulent drainage or bleeding noted from the sites. However, there is some erythema surrounding the excoriations.) Assessment /Plan Problems (1) Acute metabolic encephalopathy Status: Resolved Problem Text: * due to sepsis * abg did not show any co2 retention * Ct scan was done in another facility but showed no acute disease (2) Septic shock Status: Acute Response to Treatment: Improving Problem Text: * wound culture positive for e facialis and proteus * vanco was restarted because pt was refusing oral pills (3) Morbid obesity Status: Chronic (4) Acute kidney injury Status: Resolved (5) Diarrhea Status: Acute Problem Text: enteropathogenic e coli in GI panel . (6) Diabetes Status: Chronic Problem Text: lispro as per sliding scale. (7) Hyperlipidemia Status: Chronic (8) Hypothyroid Status: Chronic (9) Decubitus ulcer Status: Acute Problem Text: present since admission. just below both buttocks. stage 2 Plan/VTE VTE Prophylaxis Ordered?: Yes Plan/Urinary Catheter Reason for insertion/continuin: Critical Pt monitoring VS, I&O, 24H, Fishbone Vital Signs/I&O Vital Signs Date Time Temp Pulse Resp B/P Pulse Ox O2 Delivery O2 Flow Rate FiO2 10/06/16 06:00 98.9 118 20 128/67 91 Room Air 10/03/16 12:00 I&O- Last 24 Hours up to 6 AM 10/06/16 06:00 Intake Total 1745 ml Output Total 1800 ml Balance -55 ml Laboratory Data 24H LABS Laboratory Tests 2 10/05/16 11:53: Bedside Glucose (Misc Panel) 279H 10/05/16 16:50: Bedside Glucose (Misc Panel) 212H 10/05/16 19:54: Vancomycin Level Trough 10.0 10/05/16 20:42: Bedside Glucose (Misc Panel) 194H 10/06/16 05:12: Blood Urea Nitrogen 13, Creatinine 0.75, Sodium Level 142, Potassium Level 3.7, Chloride Level 106, Carbon Dioxide Level 24, Calcium Level 7.7L, Aspartate Amino Transf (AST/SGOT) 66H, Alanine Aminotransferase (ALT/SGPT) 64, Alkaline Phosphatase 80, Total Bilirubin 0.4, Total Protein 4.6L, Albumin 1.9L, Albumin/ Globulin Ratio 0.70L, Anion Gap 12, Glomerular Filtration Rate > 60.0 CBC/BMP Laboratory Tests 10/06/16 05:12 Calcium Level 7.7 L, Aspartate Amino Transf (AST/SGOT) 66 H, Alanine Aminotransferase (ALT/SGPT) 64, Alkaline Phosphatase 80, Total Bilirubin 0.4, Total Protein 4.6 L, Albumin 1.9 L, Red Blood Count 3.58 L, Mean Corpuscular Volume 87.6, Mean Corpuscular Hemoglobin 28.6, Mean Corpuscular Hemoglobin Concent 32.7, Red Cell Distribution Width 14.6 H Microbiology Microbiology 10/04/16 Blood Culture - Preliminary, Resulted No growth after 24 hours . All specim... 10/04/16 Blood Culture - Preliminary, Resulted No growth after 24 hours . All specim... 10/01/16 Blood Culture - Preliminary, Resulted No Growth after 72 hours. All specime... 10/01/16 Blood Culture - Preliminary, Resulted No Growth after 72 hours. All specime... 10/03/16 Clostridium difficile (PCR) - Final, Complete 10/01/16 Gastrointestinal Tract Panel (PCR) - Final, Complete Enteropathogenic E.coli 10/01/16 Urine Culture - Final, Complete 10/01/16 Gram Stain - Final, Complete 10/01/16 Wound Culture - Final, Complete Proteus Mirabilis Enterococcus Faecalis KIKE THAKUR DO Oct 06, 2016 08:22
[2016-10-06] MEDS: PANTOPRAZOLE 40MG INJ (PROTONIX) (C9113) IV SCH (08:34)
[2016-10-06] MEDS: HumaLOG INSULIN (NovoLOG) PER UNIT SC SCH ×5 (08:34→23:58)
[2016-10-06] MEDS: NYSTATIN 100,000 UNITS/GM TOPICAL PWD 15 GM TOP SCH ×2 (08:34→21:09)
[2016-10-06] MEDS: VANCOMYCIN HCL 1,000 MG, VIAL MATE ADAPTER 1 EACH in D5W 250 ML IV SCH (08:34)
[2016-10-06] MEDS: ACETAMINOPHEN TAB 650MG DOSE (2X325MG) PO PRN ×2 (08:40→21:40)
--- NOTE | 2016-10-06 08:53 | REP ---
Clinical: Pneumonia. Comparison: 10/05/2016. Findings: Right IJ line with tip in the SVC. Mediastinum and cardiac silhouette stable. Increased markings may be secondary to technique although mild pulmonary vascular congestion cannot be excluded. Right middle lobe atelectasis/infiltrate cannot be excluded. Impression: Limited portable examination cannot exclude pulmonary vascular congestion or right middle lobe atelectasis. Signed by Jesus Manuel Wilson MD 10/06/2016 08:45 A
--- NOTE | 2016-10-06 12:11 | REP ---
ABDOMINAL RADIOGRAPH: CLINICAL HISTORY: Abdominal pain. TECHNIQUE: Two supine views of the abdomen and pelvis. FINDINGS: Prominent air-filled loops of small and large bowel are appreciated suggesting ileus. No definite findings to suggest obstruction or perforation. Skeletal structures demonstrate degenerative changes. Right femoral neck fracture noted. IMPRESSION: 1. Distended small and large bowel may reflect ileus. 2. Right femoral neck fracture. Signed by Jesus Manuel Wilson MD 10/11/2016 11:03 A
[2016-10-06 14:00] VITALS: BP 139/63
[2016-10-06] MEDS ORDERED: MOM 30ML SUSPENSION UDC PO PRN (15:45)
--- NOTE | 2016-10-06 16:04 | IPNPDOC ---
Subjective Date Seen The patient was seen on 10/06/16. Subjective Chief Complaint/HPI The patient is a 61-year-old female admitted with a reason for visit of Septic Shock / Pnemonia. Events since last encounter pt seen and examined, still confused and complaining of abd pain, she had no bowel movements since 10/03 Constitutional: Denies: Chills, Fever, Night Sweats Objective Physical Examination General Exam: Positive: No Acute Distress, Other (obtunded. opening eyes when spoken to) Eye Exam: Positive: Conjunctiva & lids normal, PERRLA ENT Exam: Positive: Atraumatic, Mucous membr. moist/pink Neck Exam: Negative: JVD Chest Exam: Positive: Diminished, Rales, Wheezing Heart Exam: Positive: Normal S1, Normal S2, Rate Normal Telemetry: Positive: No significant arrhythmia Abdomen Exam: Positive: Other (abdominal fat fold with fungal infection), Soft , Negative: Tenderness Extremity Exam: Negative: Tenderness Skin Exam: Positive: Other skin issue (patient noted to have multiple excoriations all over the skin including across the chest, under the breasts, and under the skin folds of the abdomen, and groin. In addition she also has excoriations noted on the lateral aspects of both knees bilaterally, as well as her feet which appear to have some wounds along the plantar and dorsal surface. No active purulent drainage or bleeding noted from the sites. However, there is some erythema surrounding the excoriations.) Assessment /Plan Problems (1) Ileus Status: Acute Problem Text: will start pt on mom, miralax and colace keep pt NPO till she has a bowel movement (2) Decubitus ulcer Status: Acute Problem Text: * present since admission. * pt appears to have multiple decubitus ulcers * wound care saw pt today and recommended Santyl on her knees, elbows, and toes (3) Septic shock Status: Acute Response to Treatment: Improving Problem Text: * wound culture positive for e facialis and proteus * continue IV ampicillin (4) Acute metabolic encephalopathy Status: Resolved Problem Text: * due to sepsis * abg did not show any co2 retention * Ct scan was done in another facility but showed no acute disease (5) Morbid obesity Status: Chronic (6) Acute kidney injury Status: Resolved (7) Diarrhea Status: Resolved Problem Text: enteropathogenic e coli in GI panel . now pt has ileus (8) Diabetes Status: Chronic Problem Text: lispro as per sliding scale. (9) Hyperlipidemia Status: Chronic (10) Hypothyroid Status: Chronic (11) Femoral fracture Status: Acute Problem Text: * right femoral neck fracture * will call ortho tomorrow Plan/VTE VTE Prophylaxis Ordered?: Yes Plan/Urinary Catheter Reason for insertion/continuin: Critical Pt monitoring VS, I&O, 24H, Fishbone Vital Signs/I&O Vital Signs Date Time Temp Pulse Resp B/P Pulse Ox O2 Delivery O2 Flow Rate FiO2 10/06/16 08:40 Room Air 10/06/16 06:00 98.9 118 20 128/67 91 10/03/16 12:00 I&O- Last 24 Hours up to 6 AM 10/06/16 05:59 Intake Total 1745 ml Output Total 1350 ml Balance 395 ml Laboratory Data 24H LABS Laboratory Tests 2 10/05/16 16:50: Bedside Glucose (Misc Panel) 212H 10/05/16 19:54: Vancomycin Level Trough 10.0 10/05/16 20:42: Bedside Glucose (Misc Panel) 194H 10/06/16 05:12: Blood Urea Nitrogen 13, Creatinine 0.75, Sodium Level 142, Potassium Level 3.7, Chloride Level 106, Carbon Dioxide Level 24, Calcium Level 7.7L, Aspartate Amino Transf (AST/SGOT) 66H, Alanine Aminotransferase (ALT/SGPT) 64, Alkaline Phosphatase 80, Total Bilirubin 0.4, Total Protein 4.6L, Albumin 1.9L, Albumin/ Globulin Ratio 0.70L, Anion Gap 12, Glomerular Filtration Rate > 60.0 10/06/16 12:10: Bedside Glucose (Misc Panel) 217H CBC/BMP Laboratory Tests 10/06/16 05:12 Calcium Level 7.7 L, Aspartate Amino Transf (AST/SGOT) 66 H, Alanine Aminotransferase (ALT/SGPT) 64, Alkaline Phosphatase 80, Total Bilirubin 0.4, Total Protein 4.6 L, Albumin 1.9 L, Red Blood Count 3.58 L, Mean Corpuscular Volume 87.6, Mean Corpuscular Hemoglobin 28.6, Mean Corpuscular Hemoglobin Concent 32.7, Red Cell Distribution Width 14.6 H Microbiology Microbiology 10/04/16 Blood Culture - Preliminary, Resulted No growth after 24 hours . All specim... 10/04/16 Blood Culture - Preliminary, Resulted No growth after 24 hours . All specim... 10/01/16 Blood Culture - Final, Complete NO GROWTH AFTER 5 DAYS 10/01/16 Blood Culture - Final, Complete NO GROWTH AFTER 5 DAYS 10/03/16 Clostridium difficile (PCR) - Final, Complete 10/01/16 Gastrointestinal Tract Panel (PCR) - Final, Complete Enteropathogenic E.coli 10/01/16 Urine Culture - Final, Complete 10/01/16 Gram Stain - Final, Complete 10/01/16 Wound Culture - Final, Complete Proteus Mirabilis Enterococcus Faecalis KIKE THAKUR DO Oct 06, 2016 16:04
[2016-10-06] MEDS: AMPICILLIN SOD 1 GM in D5W MINI-BAG PLUS 50 ML IV SCH ×2 (17:09→23:57)
[2016-10-06] MEDS: SANTYL OINT 30GM TOP SCH (17:47)
[2016-10-06] MEDS: DOCUSATE SODIUM 100 MG CAP PO SCH (21:06)
[2016-10-06 22:00] VITALS: BP 138/72
[2016-10-07] MEDS: SLF 3 ML SYR IV SCH ×3 (05:02→21:20)
[2016-10-07] MEDS: HEPARIN SOD (PORCINE) 5000 UNITS/ML VIAL SC SCH ×3 (05:33→21:20)
[2016-10-07] MEDS: HumaLOG INSULIN (NovoLOG) PER UNIT SC SCH ×3 (05:34→18:00)
[2016-10-07] MEDS: AMPICILLIN SOD 1 GM in D5W MINI-BAG PLUS 50 ML IV SCH ×2 (05:34→11:42)
[2016-10-07] MEDS: LEVOTHYROXINE 0.0375MG (37.5MCG) PER 1/2 TABLET PO SCH (05:34)
[2016-10-07] MEDS: SODIUM CHLORIDE 0.9% INJ 10 ML SYR IV SCH ×3 (05:35→21:20)
[2016-10-07] MEDS: ACETAMINOPHEN TAB 650MG DOSE (2X325MG) PO PRN (05:36)
[2016-10-07 05:55] LABS: MEAN CORPUSCULAR HEMOGLOBIN 28.9 pg (27.0-33.0); MEAN CORPUSCULAR HGB CONC 32.8 g/dl (32.0-36.5); MEAN CORPUSCULAR VOLUME 87.9 fl (80.0-96.0); RED CELL DISTRIBUTION WIDTH 14.8 % (11.5-14.5); WHITE BLOOD COUNT 7.6 K/mm3 (4.0-10.0)
[2016-10-07 06:00] VITALS: BP 121/72
[2016-10-07 06:36] LABS: ALBUMIN 1.9 GM/DL (3.2-5.2); ALKALINE PHOSPHATASE 77 U/L (45-117); ALT/SGPT 68 U/L (12-78); ANION GAP 6 MEQ/L (8-16); AST/SGOT 78 U/L (15-37); BILIRUBIN,TOTAL 0.3 MG/DL (0.2-1.0); BLOOD UREA NITROGEN 14 MG/DL (7-18); CARBON DIOXIDE LEVEL 30 MEQ/L (21-32); CHLORIDE LEVEL 105 MEQ/L (98-107); CREATININE FOR GFR 0.68 MG/DL (0.55-1.02); GLOMERULAR FILTRATION RATE > 60.0 (>45); GLUCOSE, FASTING 188 MG/DL (80-110); POTASSIUM SERUM 3.9 MEQ/L (3.5-5.1); SODIUM LEVEL 141 MEQ/L (136-145); TOTAL PROTEIN 4.6 GM/DL (6.4-8.2)
[2016-10-07] MEDS: IPRATROPIUM 0.5MG/ALBUTEROL 2.5MG INH SOL UD 3ML (DUONEB)(J7620) NEB SCH ×5 (07:09→23:46)
[2016-10-07] MEDS ORDERED: NS 1,000 ML IV SCH (09:15)
--- NOTE | 2016-10-07 09:32 | REP ---
Clinical: Follow up pneumonia. Comparison: 10/06/2016. Findings: Evaluation is limited by portable technique, underpenetration, and poor inspiratory effort. Perihilar opacities once again cannot be excluded. Impression: Limited examination cannot exclude perihilar opacities. Signed by Jesus Manuel Wilson MD 10/07/2016 09:23 A
[2016-10-07] MEDS: PANTOPRAZOLE 40MG INJ (PROTONIX) (C9113) IV SCH (09:49)
--- NOTE | 2016-10-07 09:50 | REP ---
Clinical: Fracture. Technique: AP and cross-table lateral views of the right hip. Findings: There is a transverse fracture through the femoral neck with mild displacement and underlying age-related arthritic degenerative changes. Impression: Femoral neck fracture with mild displacement. Signed by Jesus Manuel Wilson MD 10/07/2016 09:42 A
[2016-10-07 10:09] LABS: ABG BASE EXCESS 5.8 (-2.0-2.0); ABG HCO3 30.2 MEQ/L (22.0-26.0); ABG PARTIAL PRESSURE CO2 43.4 mmHg (35.0-45.0); ABG PARTIAL PRESSURE O2 81.5 mmHg (75.0-100.0); ABG STANDARD HCO3 29.7 MEQ/L (22.0-26.0); ABG TOTAL CO2 31.6 MEQ/L (23.0-31.0); ABG pH (ARTERIAL) 7.461 UNITS (7.350-7.450)
[2016-10-07] MEDS: NYSTATIN 100,000 UNITS/GM TOPICAL PWD 15 GM TOP SCH ×2 (11:44→21:20)
[2016-10-07] MEDS: MIRALAX *UNIT DOSE* 17GM PACKET PO SCH ×2 (11:44→11:48)
[2016-10-07] MEDS: DOCUSATE SODIUM 100 MG CAP PO SCH ×3 (11:44→21:19)
[2016-10-07] MEDS ORDERED: VANCOMYCIN HCL 750 MG, VIAL MATE ADAPTER 1 EACH in D5W 250 ML IV SCH (13:15)
--- NOTE | 2016-10-07 13:21 | IPNPDOC ---
Subjective Date Seen The patient was seen on 10/07/16. Subjective Chief Complaint/HPI The patient is a 61-year-old female admitted with a reason for visit of Septic Shock / Pnemonia. Events since last encounter pt seen and examined, very lethargic today, General: Reports: ROS Unobtainable Objective Physical Examination General Exam: Positive: No Acute Distress, Other (obtunded. opening eyes when spoken to) Eye Exam: Positive: Conjunctiva & lids normal, PERRLA ENT Exam: Positive: Atraumatic, Mucous membr. moist/pink Neck Exam: Negative: JVD Chest Exam: Positive: Diminished, Rales, Wheezing Heart Exam: Positive: Normal S1, Normal S2, Rate Normal Telemetry: Positive: No significant arrhythmia Abdomen Exam: Positive: Other (abdominal fat fold with fungal infection), Soft , Negative: Tenderness Extremity Exam: Negative: Tenderness Skin Exam: Positive: Other skin issue (patient noted to have multiple excoriations all over the skin including across the chest, under the breasts, and under the skin folds of the abdomen, and groin. In addition she also has excoriations noted on the lateral aspects of both knees bilaterally, as well as her feet which appear to have some wounds along the plantar and dorsal surface. No active purulent drainage or bleeding noted from the sites. However, there is some erythema surrounding the excoriations.) Assessment /Plan Problems (1) Ileus Status: Acute Problem Text: will start pt on mom, miralax and colace keep pt NPO till she has a bowel movemen will repeat KUB in am (2) Decubitus ulcer Status: Acute Problem Text: * present since admission. * pt appears to have multiple decubitus ulcers * wound care saw pt and recommended Santyl on her knees, elbows, and toes (3) Septic shock Status: Acute Response to Treatment: Improving Problem Text: * wound culture positive for e facialis and proteus * continue IV antibiotics * pt was taken off of ampicillin because every time she was taken off of vanco she would spike fevers and have elevated WBC * lactic acid was repeated and it's still negative (4) Acute metabolic encephalopathy Status: Acute Response to Treatment: Worse Problem Text: * likely due to sepsis * abg did not show any co2 retention * Ct scan was done in another facility but showed no acute disease * ammonia level was less than 10 (5) Morbid obesity Status: Chronic (6) Acute kidney injury Status: Resolved (7) Diarrhea Status: Resolved Problem Text: enteropathogenic e coli in GI panel . now pt has ileus (8) Diabetes Status: Chronic Problem Text: lispro as per sliding scale. (9) Hyperlipidemia Status: Chronic (10) Hypothyroid Status: Chronic (11) Femoral fracture Status: Acute Problem Text: * right femoral neck fracture * Dr armas is consulted Plan/VTE VTE Prophylaxis Ordered?: Yes Plan/Urinary Catheter Reason for insertion/continuin: Critical Pt monitoring VS, I&O, 24H, Best Vital Signs/I&O Vital Signs Date Time Temp Pulse Resp B/P Pulse Ox O2 Delivery O2 Flow Rate FiO2 10/07/16 06:00 99.7 102 26 121/72 90 Room Air 10/03/16 12:00 I&O- Last 24 Hours up to 6 AM 10/07/16 06:00 Intake Total 120 ml Output Total 1100 ml Balance -980 ml Laboratory Data 24H LABS Laboratory Tests 2 10/06/16 16:41: Bedside Glucose (Misc Panel) 219H 10/06/16 23:51: Bedside Glucose (Misc Panel) 193H 10/07/16 05:23: Bedside Glucose (Misc Panel) 192H 10/07/16 05:44: Blood Urea Nitrogen 14, Creatinine 0.68, Sodium Level 141, Potassium Level 3.9, Chloride Level 105, Carbon Dioxide Level 30, Calcium Level 8.0L, Aspartate Amino Transf (AST/SGOT) 78H, Alanine Aminotransferase (ALT/SGPT) 68, Alkaline Phosphatase 77, Total Bilirubin 0.3, Total Protein 4.6L, Albumin 1.9L, Albumin/ Globulin Ratio 0.70L, Anion Gap 6L, Glomerular Filtration Rate > 60.0 10/07/16 09:57: Arterial Blood pH 7.461H, Arterial Blood Partial Pressure CO2 43.4, Arterial Blood Partial Pressure O2 81.5, Arterial Blood Total CO2 31.6H, Arterial Blood HCO3 30.2H, Arterial Blood Base Excess 5.8H, Arterial Blood Oxygen Saturation 96.4, Blood Gas Bicarbonate Standard 29.7H 10/07/16 11:54: Bedside Glucose (Misc Panel) 184H 10/07/16 12:06: Ammonia < 10, C-Reactive Protein, Quantitative 1.06H, Erythrocyte Sedimentation Rate 73H, Lactic Acid Level 0.8 CBC/BMP Laboratory Tests 10/07/16 05:44 Calcium Level 8.0 L, Aspartate Amino Transf (AST/SGOT) 78 H, Alanine Aminotransferase (ALT/SGPT) 68, Alkaline Phosphatase 77, Total Bilirubin 0.3, Total Protein 4.6 L, Albumin 1.9 L, Red Blood Count 3.34 L, Mean Corpuscular Volume 87.9, Mean Corpuscular Hemoglobin 28.9, Mean Corpuscular Hemoglobin Concent 32.8, Red Cell Distribution Width 14.8 H Microbiology Microbiology 10/04/16 Blood Culture - Preliminary, Resulted No Growth after 48 hours. All Specime... 10/04/16 Blood Culture - Preliminary, Resulted No Growth after 48 hours. All Specime... 10/01/16 Blood Culture - Final, Complete NO GROWTH AFTER 5 DAYS 10/01/16 Blood Culture - Final, Complete NO GROWTH AFTER 5 DAYS 10/03/16 Clostridium difficile (PCR) - Final, Complete 10/01/16 Gastrointestinal Tract Panel (PCR) - Final, Complete Enteropathogenic E.coli 10/01/16 Urine Culture - Final, Complete 10/01/16 Gram Stain - Final, Complete 10/01/16 Wound Culture - Final, Complete Proteus Mirabilis Enterococcus Faecalis KIKE THAKUR DO Oct 07, 2016 13:21
[2016-10-07 14:00] VITALS: BP 138/88
--- NOTE | 2016-10-07 14:14 | PHACANCOPD ---
PHARMACY VANCOMYCIN DOSING Pt Demographics Demographics Patient Age:61 , Weight:135.400 , Gender: female Adjusted Body Weight Date: 10/01/16, Adjusted Body Weight: [84.24] Kg Events Past 24 Hours Events Past 24 Hours: YES: Fever Vancomycin Vancomycin indication: sepsis Vancomycin Target Ranges: 15-20 mcg/ml Vancomycin Load Y/N: Yes Load Dose Date Time Vancomycin Load Dose: 1.5G Date: 10/07/16 Time: 1500 Vancomycin Dose Date: 10/07/16. Current Vancomycin Dose: [1G Q12H @0300] Date: 10/03/16. Current Vancomycin Dose: [750mg iv q12h@0900] Date: 10/01/16. Current Vancomycin Dose: [1g IV q12h @17] Intermittent Dosing?: No Labs Labs Item Value Date Time Creatinine 0.75 MG/DL 10/06/16 0512 Creatinine 0.68 MG/DL 10/07/16 0544 Vital Signs Label Value Date Time Patient Temperature 98.9 degrees F 10/06/16 0600 Temperature Source Temporal 10/06/16 0600 Patient Temperature 98.8 degrees F 10/06/16 1400 Temperature Source Temporal 10/06/16 1400 Patient Temperature 101.5 degrees F 10/06/16 2200 Temperature Source Temporal 10/06/16 2200 Patient Temperature 99.7 degrees F 10/07/16 0600 Temperature Source Temporal 10/07/16 0600 Micro Microbiology 10/04/16 Blood Culture - Preliminary, Resulted No Growth after 48 hours. All Specime... 10/04/16 Blood Culture - Preliminary, Resulted No Growth after 48 hours. All Specime... 10/01/16 Blood Culture - Final, Complete NO GROWTH AFTER 5 DAYS 10/01/16 Blood Culture - Final, Complete NO GROWTH AFTER 5 DAYS 10/03/16 Clostridium difficile (PCR) - Final, Complete 10/01/16 Gastrointestinal Tract Panel (PCR) - Final, Complete Enteropathogenic E.coli 10/01/16 Urine Culture - Final, Complete 10/01/16 Gram Stain - Final, Complete 10/01/16 Wound Culture - Final, Complete Proteus Mirabilis Enterococcus Faecalis Creatinine Clearance Date:10/07/16. Creatinine Clearance: [75.4ML/MIN]. Date:10/01/16. Creatinine Clearance: [50 ml/min using adjusted BW]. Assessment and Plan Maintaining Current Dose?: Yes Reason for dose change: No Dose Change Pharmacist Note Pharmacist Note Date: 10/07/16. Pharmacist note: PT is being restarted again on vancomycin. Pt refuses oral medications and starts spiking fevers and wbc elevates when off vancomycin. Pt creatinine clearance has improved since initiation and is now 75.4ml/min. To restart vancomycin 1.5g is started @ 15:00. Maintenance therapy will consist of 1g q12h starting 10/08 @ 03:00. We will continue to monitor and adjust dose as needed. Date: 10/03/16. Pharmacist note:Vancomycin trough drawn@0400 this am reported as 21.6 indicating a bit of accumulation-SCR is improving at 1.17 (calculateed CRCL now 65.5)Will adjust Vancomycin dose for now to 750mg IV Q12H to begin at 0900 this am-will continue to follow levels and labs 3Date: 10/01/16. Pharmacist note: pt was transferred from [facility] for sepsis, she has been started on Zosyn and Vancomycin. Pt only received ~300mg of vancomycin IV prior to transfer to [facility]. I have started her 1g IV q12h dosing to start this afternoon. Pt does not have any medical hx at our facility. I will reassess her renal function tomorrow and adjust dosing/order troughs as necessary. FRANCA CALDERON PHARMAC[facility] Oct 07, 2016 14:14
[2016-10-07] MEDS: VANCOMYCIN HCL 1,000 MG, VIAL MATE ADAPTER 1 EACH in D5W 250 ML IV SCH (15:09)
--- NOTE | 2016-10-07 15:21 | CR ---
DATE OF CONSULTATION: 10/07/2016 REFERRING PHYSICIAN: Dr. Emily Bridges CHIEF COMPLAINT: Right hip fracture picked up incidentally. This is a 61-year-old woman with morbid obesity and a body mass index (BMI) of 53 who was transferred here from [facility] approximately 6 days ago for presumed sepsis. She was unresponsive brought to [facility] and then transferred here, was initially in the ICU for sepsis. She has multiple medical problems including hypertension, diabetes, dyslipidemia, hypothyroidism, morbid obesity, multiple decubitus ulcers. She reports to me that she normally ambulates without any assistive device. But she is a poor historian and most of the history I was able to obtained from the treating physicians. She had a KUB study that showed an incidental right hip fracture, femoral neck fracture that was displaced and a follow-up hip x-ray was obtained. The patient complains of no hip pain. Medications prior to admission here, included Zosyn, albuterol, aspirin, atorvastatin gabapentin, heparin, insulin, Synthroid, losartan and metformin, omeprazole, Protonix and pioglitazone ALLERGIES: No known drug allergies PAST MEDICAL HISTORY: as noted above. PAST SURGICAL HISTORY: Past surgical history is reported as a total abdominal hysterectomy. FAMILY HISTORY: Family history is otherwise non-pertinent. REVIEW OF SYSTEMS: Really not able to obtain due to her current condition. She was minimally communicative with me today and is actually in the midst of getting an lumbar puncture to workup for sepsis apparently. PHYSICAL EXAMINATION: Again somewhat limited. She is morbidly obese. Was able to answer simple questions. She has multiple decubitus ulcers covering her primarily in her lower back and sacral region. There are documented pictures of these in the chart. There is one on the left breast, left elbow, right toe, right elbow, right knee and abdominal fold, left knee, etc. Her hip is non-irritable to range of motion. She was able to tolerate having the hip flexed up to 90 degrees without any reports of pain. X-rays were reviewed of her right hip and they demonstrate a displaced [place] 4 femoral neck fracture indeterminate age. This may be old and difficult to determine. IMPRESSION: Displaced right femoral neck fracture in a patient with significant medical problems including morbid obesity, diabetes, multiple decubitus, recent septic shock, pneumonia. Certainly not a good surgical candidate. This is in addition to the fact that she is not complaining of any right hip pain. RECOMMENDATIONS: At this point I would just continue with current management. She certainly has medical issues that would take priority. She is in the midst of a sepsis workup. I would suggest just continuing to turn as they are doing to try to minimize the risk of further skin breakdown. I think it would be reasonable if she were up to it to be transferred to a chair, although I would minimize weightbearing on the right lower extremity. Please let us know if she becomes a better surgical candidate in terms of her medical issues and decubitus ulcers or if she begins complaining of right hip pain. At this point, I would suggest treating this nonoperatively. She is a very high surgical risk in terms of her underlying medical problems and in terms of infection of the hip, which would be contributed to by the fact that she is diabetic, has a BMI of 53 and has these multiple decubitus ulcers of her body. Again thank you for the consult.
[2016-10-07] MEDS: SANTYL OINT 30GM TOP SCH (15:24)
[2016-10-07] MEDS ORDERED: VANCOMYCIN HCL 500 MG in D5W MINI-BAG PLUS 100 ML IV ONE (16:00)
--- NOTE | 2016-10-07 17:00 | RO ---
DATE OF PROCEDURE: 10/07/2016 PREPROCEDURE DIAGNOSIS: Sepsis with altered mental status. POSTPROCEDURE DIAGNOSIS: Sepsis with altered mental status. PHYSICIAN PERFORMING THE PROCEDURE: Dr. Tila Jones PHYSICIAN ASSISTING PROCEDURE: Dr. Emily Bridges PROCEDURE PERFORMED: Diagnostic lumbar puncture. INDICATION FOR PROCEDURE: Sepsis with altered mental status. SEDATION: None. ANESTHETIC: 1% local lidocaine. VENTILATION: None. ESTIMATED BLOOD LOSS: Minimal. DESCRIPTION OF PROCEDURE: The patient was placed in left lateral decubitus position. Attempt was made to lay the patient on her back, but the patient was morbid obese and position was very difficult. Subsequently, landmark of suprailiac crest was palpated and vertebral spine was also palpated and intravertebral space of L4-L5 was located. Superficial lidocaine subcutaneously and then deep 1% lidocaine was injected. Subsequently, spinal needle was inserted, checking for fluid return every 1 to 2 mm and the needle was slowly advanced. Unfortunately, due to morbid obesity, unable to obtain the fluid, even though the needle reached a maximum depth of the needle, which was a 3-1/2 inch needle. Subsequently, the procedure was aborted. Interventional radiology was called to get a longer spinal needle, and we will reattempt the procedure later. The patient tolerated the procedure with no complications, but the procedure was unsuccessful. We will reattempt later.
[2016-10-07 17:59] LABS: GLUCOSE CSF 112 MG/DL (40-75); RBC CSF AUTO 1189 /mm3 (0-0); WBC CSF AUTO 82 /mm3 (0-10)
[2016-10-07 18:01] LABS: RBC CSF AUTO 79 /mm3 (0-0); WBC CSF AUTO 5 /mm3 (0-10)
[2016-10-07 18:10] LABS: APPEARANCE, CSF HAZY (CLEAR); COLOR, CSF COLORLESS (COLORLESS); COLOR, CSF PINK (COLORLESS); CSF DIFF IF INDICATED? YES (NO); CSF TUBE# CELL CNT TUBE 1; CSF TUBE# CELL CNT TUBE 4
[2016-10-07 18:11] LABS: APPEARANCE, CSF CLEAR (CLEAR); CSF DIFF IF INDICATED? NO (NO); CSF DILUENT LOT # 6165
[2016-10-07 22:00] VITALS: BP 163/76
--- NOTE | 2016-10-08 00:01 | RO ---
DATE OF PROCEDURE: 10/07/2016 PREPROCEDURE DIAGNOSIS: Fevers and altered mental status. POSTPROCEDURE DIAGNOSIS: Fevers and altered mental status. PROCEDURE: Diagnostic lumbar puncture. SURGEON: Dr. Tila Jones FLATWORK PRESSER: Dr. Richy Selby ANESTHESIA: 1% loca lidocaine. ESTIMATED BLOOD LOSS: Minimal. SEDATION: None. DESCRIPTION OF PROCEDURE: The patient was placed in left lateral decubitus position and cleaned with Betadine three times, covered in a sterile manner. [place] of superior iliac crest was palpated as well as spinous process was palpated. Ultrasound was used prior to the procedure to confirm midline and spinous process, given patient's morbid obesity. Furthermore, because of previous attempt of not being able to reach the cerebrospinal fluid (CSF) with the 3-1/2 inch needle, a longer needle was requested during this procedure. A 22-gauge 5-inch needle was used. 1% local lidocaine was first injected subcutaneously, then deeply. Lumbar puncture needle was inserted and CSF was obtained. Needle was advanced, checking for fluid return every 1-2 mm and CSF fluid was obtained. Needle was removed, dressing was placed. The patient was placed in supine position. Nurses were instructed to keep the patient in the supine position for 3-4 hours. The patient tolerated the procedure with no complications. Fluids were sent.
[2016-10-08] MEDS: IPRATROPIUM 0.5MG/ALBUTEROL 2.5MG INH SOL UD 3ML (DUONEB)(J7620) NEB SCH ×5 (02:41→19:21)
[2016-10-08] MEDS: VANCOMYCIN HCL 1,000 MG, VIAL MATE ADAPTER 1 EACH in D5W 250 ML IV SCH ×2 (03:00→14:47)
[2016-10-08] MEDS: HEPARIN SOD (PORCINE) 5000 UNITS/ML VIAL SC SCH ×3 (05:17→20:43)
[2016-10-08] MEDS: SODIUM CHLORIDE 0.9% INJ 10 ML SYR IV SCH ×3 (05:17→20:43)
[2016-10-08] MEDS: LEVOTHYROXINE 0.0375MG (37.5MCG) PER 1/2 TABLET PO SCH (05:17)
[2016-10-08] MEDS: SLF 3 ML SYR IV SCH ×3 (05:18→20:43)
[2016-10-08 05:58] LABS: MEAN CORPUSCULAR HEMOGLOBIN 29.4 pg (27.0-33.0); MEAN CORPUSCULAR HGB CONC 33.3 g/dl (32.0-36.5); MEAN CORPUSCULAR VOLUME 88.4 fl (80.0-96.0); RED CELL DISTRIBUTION WIDTH 14.7 % (11.5-14.5); WHITE BLOOD COUNT 7.3 K/mm3 (4.0-10.0)
[2016-10-08 06:00] VITALS: BP 139/66
[2016-10-08] MEDS: HumaLOG INSULIN (NovoLOG) PER UNIT SC SCH ×4 (06:00→18:07)
[2016-10-08 06:08] LABS: ALBUMIN 1.9 GM/DL (3.2-5.2); ALBUMIN/GLOBULIN RATIO 0.68 (1.00-1.93); ALKALINE PHOSPHATASE 77 U/L (45-117); ALT/SGPT 71 U/L (12-78); ANION GAP 9 MEQ/L (8-16); AST/SGOT 73 U/L (15-37); BILIRUBIN,TOTAL 0.3 MG/DL (0.2-1.0); BLOOD UREA NITROGEN 14 MG/DL (7-18); CALCIUM LEVEL 7.8 MG/DL (8.8-10.2); CARBON DIOXIDE LEVEL 29 MEQ/L (21-32); CHLORIDE LEVEL 103 MEQ/L (98-107); GLOMERULAR FILTRATION RATE > 60.0 (>45); GLUCOSE, FASTING 210 MG/DL (80-110); POTASSIUM SERUM 4.1 MEQ/L (3.5-5.1); SODIUM LEVEL 141 MEQ/L (136-145); TOTAL PROTEIN 4.7 GM/DL (6.4-8.2)
[2016-10-08] MEDS: PANTOPRAZOLE 40MG INJ (PROTONIX) (C9113) IV SCH (08:12)
[2016-10-08] MEDS: DOCUSATE SODIUM 100 MG CAP PO SCH ×2 (08:13→20:44)
[2016-10-08] MEDS: MIRALAX *UNIT DOSE* 17GM PACKET PO SCH (08:13)
[2016-10-08] MEDS: NYSTATIN 100,000 UNITS/GM TOPICAL PWD 15 GM TOP SCH ×2 (08:13→20:44)
--- NOTE | 2016-10-08 08:29 | REP ---
Clinical: Follow up pneumonia. Comparison: 10/07/2016. Findings: Subtle right middle lobe atelectasis again suggested similar to prior examination. Evaluation is limited by portable technique and underpenetration. Right IJ line with tip in the SVC. Mediastinum and cardiac silhouette stable and within normal limits for portable technique. No obvious effusion. No pneumothorax. Skeletal structures intact. Impression: Subtle medial right middle lobe atelectasis suggested. Signed by Jesus Manuel Wilson MD 10/08/2016 08:20 A
[2016-10-08] MEDS: SANTYL OINT 30GM TOP SCH (10:03)
[2016-10-08 14:00] VITALS: BP 142/76
--- NOTE | 2016-10-08 14:46 | IPNPDOC ---
Subjective Date Seen The patient was seen on 10/08/16. Subjective Chief Complaint/HPI The patient is a 61-year-old female admitted with a reason for visit of Septic Shock / Pnemonia. Events since last encounter pt seen and examined, Objective Physical Examination General Exam: Positive: No Acute Distress, Other (obtunded. opening eyes when spoken to) Eye Exam: Positive: Conjunctiva & lids normal, PERRLA ENT Exam: Positive: Atraumatic, Mucous membr. moist/pink Neck Exam: Negative: JVD Chest Exam: Positive: Diminished, Rales, Wheezing Heart Exam: Positive: Normal S1, Normal S2, Rate Normal Telemetry: Positive: No significant arrhythmia Abdomen Exam: Positive: Other (abdominal fat fold with fungal infection), Soft , Negative: Tenderness Extremity Exam: Negative: Tenderness Skin Exam: Positive: Other skin issue (patient noted to have multiple excoriations all over the skin including across the chest, under the breasts, and under the skin folds of the abdomen, and groin. In addition she also has excoriations noted on the lateral aspects of both knees bilaterally, as well as her feet which appear to have some wounds along the plantar and dorsal surface. No active purulent drainage or bleeding noted from the sites. However, there is some erythema surrounding the excoriations.) Assessment /Plan Problems (1) Septic shock Status: Acute Response to Treatment: Improving Problem Text: * wound culture positive for e facialis and proteus * continue IV antibiotics * pt was taken off of ampicillin because every time she was taken off of vanco she would spike fevers and have elevated WBC * lactic acid was repeated and it's still negative (2) Ileus Status: Resolved Problem Text: * pt had a bowel movement * will resume diet (3) Decubitus ulcer Status: Acute Problem Text: * present since admission. * pt appears to have multiple decubitus ulcers * wound care saw pt and recommended Santyl on her knees, elbows, and toes (4) Acute metabolic encephalopathy Status: Acute Response to Treatment: Worse Problem Text: * likely due to sepsis * abg did not show any co2 retention * Ct scan was done in another facility but showed no acute disease * ammonia level was less than 10 (5) Morbid obesity Status: Chronic (6) Acute kidney injury Status: Resolved (7) Diarrhea Status: Resolved Problem Text: enteropathogenic e coli in GI panel . (8) Diabetes Status: Chronic Problem Text: lispro as per sliding scale. (9) Hyperlipidemia Status: Chronic (10) Hypothyroid Status: Chronic (11) Femoral fracture Status: Acute Problem Text: * right femoral neck fracture * Dr armas is consulted * pt is not a surgical candidate Plan/VTE VTE Prophylaxis Ordered?: Yes Plan/Urinary Catheter Reason for insertion/continuin: Critical Pt monitoring VS, I&O, 24H, Best Vital Signs/I&O Vital Signs Date Time Temp Pulse Resp B/P Pulse Ox O2 Delivery O2 Flow Rate FiO2 10/08/16 09:00 Room Air 10/08/16 06:00 99.6 111 18 139/66 89 10/03/16 12:00 I&O- Last 24 Hours up to 6 AM 10/08/16 06:00 Intake Total 800 ml Output Total 1075 ml Balance -275 ml Laboratory Data 24H LABS Laboratory Tests 2 10/07/16 17:24: CSF Appearance CLEAR, CSF Cell Count Tube # TUBE 4, CSF Color COLORLESS, CSF Eosinophils % , CSF Glucose 112H, CSF Lymphocytes % , CSF Monocytes % , CSF Neutrophils % , CSF RBC 79H, CSF Total Protein 39.4, CSF Tube Number TUBE 2, CSF WBC 5 10/07/16 17:55: Bedside Glucose (Misc Panel) 198H 10/07/16 23:54: Bedside Glucose (Misc Panel) 179H 10/08/16 05:25: Blood Urea Nitrogen 14, Creatinine 0.60, Sodium Level 141, Potassium Level 4.1, Chloride Level 103, Carbon Dioxide Level 29, Calcium Level 7.8L, Aspartate Amino Transf (AST/SGOT) 73H, Alanine Aminotransferase (ALT/SGPT) 71, Alkaline Phosphatase 77, Total Bilirubin 0.3, Total Protein 4.7L, Albumin 1.9L, Albumin/ Globulin Ratio 0.68L, Anion Gap 9, Glomerular Filtration Rate > 60.0 10/08/16 05:59: Bedside Glucose (Misc Panel) 208H 10/08/16 11:54: Bedside Glucose (Misc Panel) 200H CBC/BMP Laboratory Tests 10/08/16 05:24 Red Blood Count 3.33 L, Mean Corpuscular Volume 88.4, Mean Corpuscular Hemoglobin 29.4, Mean Corpuscular Hemoglobin Concent 33.3, Red Cell Distribution Width 14.7 H 10/08/16 05:25 Calcium Level 7.8 L, Aspartate Amino Transf (AST/SGOT) 73 H, Alanine Aminotransferase (ALT/SGPT) 71, Alkaline Phosphatase 77, Total Bilirubin 0.3, Total Protein 4.7 L, Albumin 1.9 L Microbiology Microbiology 10/04/16 Blood Culture - Preliminary, Resulted No Growth after 72 hours. All specime... 10/04/16 Blood Culture - Preliminary, Resulted No Growth after 72 hours. All specime... 10/01/16 Blood Culture - Final, Complete NO GROWTH AFTER 5 DAYS 10/01/16 Blood Culture - Final, Complete NO GROWTH AFTER 5 DAYS 10/07/16 Acid Fast Stain, Received Pending 10/07/16 Mycobacterial Culture, Received Pending 10/07/16 Fungal Smear, Received Pending 10/07/16 Fungal Culture, Received Pending 10/07/16 Viral Culture, Received Pending 10/07/16 Herpes Virus DNA (PCR), Received Pending 10/07/16 Gram Stain - Final, Resulted 10/07/16 CSF Culture, Resulted Pending 10/03/16 Clostridium difficile (PCR) - Final, Complete 10/01/16 Gastrointestinal Tract Panel (PCR) - Final, Complete Enteropathogenic E.coli 10/01/16 Urine Culture - Final, Complete 10/01/16 Gram Stain - Final, Complete 10/01/16 Wound Culture - Final, Complete Proteus Mirabilis Enterococcus Faecalis KIKE THAKUR DO Oct 08, 2016 14:46
[2016-10-08] MEDS: FUROSEMIDE 20 MG/2 ML VIAL (J1940) IV SCH (16:15)
[2016-10-08] MEDS: ACETAMINOPHEN TAB 650MG DOSE (2X325MG) PO PRN (21:22)
[2016-10-08 22:00] VITALS: BP 118/66
[2016-10-09] MEDS: HumaLOG INSULIN (NovoLOG) PER UNIT SC SCH ×5 (00:02→21:46)
[2016-10-09] MEDS: VANCOMYCIN HCL 1,000 MG, VIAL MATE ADAPTER 1 EACH in D5W 250 ML IV SCH ×2 (02:48→15:13)
[2016-10-09] MEDS: IPRATROPIUM 0.5MG/ALBUTEROL 2.5MG INH SOL UD 3ML (DUONEB)(J7620) NEB SCH ×7 (03:22→23:13)
[2016-10-09] MEDS: SODIUM CHLORIDE 0.9% INJ 10 ML SYR IV SCH ×3 (05:10→21:46)
[2016-10-09] MEDS: HEPARIN SOD (PORCINE) 5000 UNITS/ML VIAL SC SCH ×3 (05:11→21:45)
[2016-10-09] MEDS: SLF 3 ML SYR IV SCH ×2 (05:11→14:00)
[2016-10-09] MEDS: LEVOTHYROXINE 0.0375MG (37.5MCG) PER 1/2 TABLET PO SCH (05:23)
[2016-10-09 05:30] LABS: BASO % 0.2 % (0.0-1.0); EOS # 0.1 K/mm3 (0.0-0.50); EOS % 1.1 % (0.0-3.0); LARGE UNSTAINED CELL # 0.1 K/mm3 (0.0-0.4); LARGE UNSTAINED CELL % 1.5 % (0.0-4.0); LYMPH # 1.1 K/mm3 (1.5-4.5); LYMPH % 14.5 % (24.0-44.0); MEAN CORPUSCULAR HEMOGLOBIN 28.6 pg (27.0-33.0); MEAN CORPUSCULAR HGB CONC 32.1 g/dl (32.0-36.5); MEAN CORPUSCULAR VOLUME 89.2 fl (80.0-96.0); MONO # 0.2 K/mm3 (0.0-0.8); MONO % 2.9 % (0.0-5.0); NEUTROPHILS # 5.4 K/mm3 (1.8-7.7); NEUTROPHILS % 79.8 % (36.0-66.0); PLATELET COUNT, AUTOMATED 276 k/mm3 (150-450); RED CELL DISTRIBUTION WIDTH 15.1 % (11.5-14.5); WHITE BLOOD COUNT 6.8 K/mm3 (4.0-10.0)
[2016-10-09 05:36] VITALS: BP 141/66
[2016-10-09 06:06] LABS: ALBUMIN 1.8 GM/DL (3.2-5.2); ALBUMIN/GLOBULIN RATIO 0.69 (1.00-1.93); ALKALINE PHOSPHATASE 70 U/L (45-117); ALT/SGPT 76 U/L (12-78); ANION GAP 7 MEQ/L (8-16); AST/SGOT 77 U/L (15-37); BILIRUBIN,TOTAL 0.3 MG/DL (0.2-1.0); BLOOD UREA NITROGEN 13 MG/DL (7-18); CALCIUM LEVEL 7.6 MG/DL (8.8-10.2); CARBON DIOXIDE LEVEL 31 MEQ/L (21-32); CHLORIDE LEVEL 102 MEQ/L (98-107); CREATININE FOR GFR 0.65 MG/DL (0.55-1.02); GLOMERULAR FILTRATION RATE > 60.0 (>45); GLUCOSE, FASTING 244 MG/DL (80-110); POTASSIUM SERUM 3.7 MEQ/L (3.5-5.1); SODIUM LEVEL 140 MEQ/L (136-145); TOTAL PROTEIN 4.4 GM/DL (6.4-8.2)
--- NOTE | 2016-10-09 07:59 | REP ---
Clinical: Pneumonia. Junior: 10/08/2016. Findings: Evaluation is limited by portable technique, underpenetration, and poor inspiratory effort. Mediastinum and cardiac silhouette are stable. Perihilar opacities with prominent pulmonary vasculature suggested. Differential diagnosis includes mild right perihilar infiltrate as well as possible mild pulmonary vascular congestion. No obvious effusion. No pneumothorax. Skeletal structures intact. Impression: Cannot exclude right perihilar infiltrate or mild pulmonary vascular congestion. Signed by Jesus Manuel Wilson MD 10/09/2016 07:50 A
[2016-10-09] MEDS: DOCUSATE SODIUM 100 MG CAP PO SCH ×2 (08:37→21:45)
[2016-10-09] MEDS: FUROSEMIDE 20 MG/2 ML VIAL (J1940) IV SCH ×2 (08:37→17:10)
[2016-10-09] MEDS: MIRALAX *UNIT DOSE* 17GM PACKET PO SCH (08:37)
[2016-10-09] MEDS: PANTOPRAZOLE 40MG INJ (PROTONIX) (C9113) IV SCH (08:37)
[2016-10-09] MEDS: SANTYL OINT 30GM TOP SCH (08:38)
[2016-10-09] MEDS: NYSTATIN 100,000 UNITS/GM TOPICAL PWD 15 GM TOP SCH ×2 (08:38→21:47)
--- NOTE | 2016-10-09 12:35 | IPNPDOC ---
Subjective Date Seen The patient was seen on 10/09/16. Subjective Chief Complaint/HPI The patient is a 61-year-old female admitted with a reason for visit of Septic Shock / Pnemonia. Objective Physical Examination General Exam: Positive: No Acute Distress, Other (obtunded. opening eyes when spoken to) Eye Exam: Positive: Conjunctiva & lids normal, PERRLA ENT Exam: Positive: Atraumatic, Mucous membr. moist/pink Neck Exam: Negative: JVD Chest Exam: Positive: Diminished, Rales, Wheezing Heart Exam: Positive: Normal S1, Normal S2, Rate Normal Telemetry: Positive: No significant arrhythmia Abdomen Exam: Positive: Other (abdominal fat fold with fungal infection), Soft , Negative: Tenderness Extremity Exam: Negative: Tenderness Skin Exam: Positive: Other skin issue (patient noted to have multiple excoriations all over the skin including across the chest, under the breasts, and under the skin folds of the abdomen, and groin. In addition she also has excoriations noted on the lateral aspects of both knees bilaterally, as well as her feet which appear to have some wounds along the plantar and dorsal surface. No active purulent drainage or bleeding noted from the sites. However, there is some erythema surrounding the excoriations.) Assessment /Plan Problems (1) Septic shock Status: Acute Response to Treatment: Improving Problem Text: * wound culture positive for e facialis and proteus * continue IV antibiotics * pt was taken off of ampicillin because every time she was taken off of vanco she would spike fevers and have elevated WBC * lactic acid was repeated and it's still negative (2) Ileus Status: Resolved Problem Text: * pt had a bowel movement * will resume diet (3) Decubitus ulcer Status: Acute Problem Text: * present since admission. * pt appears to have multiple decubitus ulcers * wound care saw pt and recommended Santyl on her knees, elbows, and toes (4) Acute metabolic encephalopathy Status: Acute Response to Treatment: Worse Problem Text: * likely due to sepsis * abg did not show any co2 retention * Ct scan was done in another facility but showed no acute disease * ammonia level was less than 10 (5) Morbid obesity Status: Chronic (6) Acute kidney injury Status: Resolved (7) Diarrhea Status: Resolved Problem Text: enteropathogenic e coli in GI panel . (8) Diabetes Status: Chronic Problem Text: lispro as per sliding scale. (9) Hyperlipidemia Status: Chronic (10) Hypothyroid Status: Chronic (11) Femoral fracture Status: Acute Problem Text: * right femoral neck fracture * Dr armas is consulted * pt is not a surgical candidate Plan/VTE VTE Prophylaxis Ordered?: Yes Plan/Urinary Catheter Reason for insertion/continuin: Critical Pt monitoring VS, I&O, 24H, Fishbone Vital Signs/I&O Vital Signs Date Time Temp Pulse Resp B/P Pulse Ox O2 Delivery O2 Flow Rate FiO2 10/09/16 09:00 Room Air 10/09/16 05:36 98.8 95 24 141/66 93 10/03/16 12:00 I&O- Last 24 Hours up to 6 AM 10/09/16 06:00 Intake Total 2490 ml Output Total 2600 ml Balance -110 ml Laboratory Data 24H LABS Laboratory Tests 2 10/08/16 17:58: Bedside Glucose (Misc Panel) 268H 10/08/16 23:36: Bedside Glucose (Misc Panel) 301H 10/09/16 05:15: Blood Urea Nitrogen 13, Creatinine 0.65, Sodium Level 140, Potassium Level 3.7, Chloride Level 102, Carbon Dioxide Level 31, Calcium Level 7.6L, Aspartate Amino Transf (AST/SGOT) 77H, Alanine Aminotransferase (ALT/SGPT) 76, Alkaline Phosphatase 70, Total Bilirubin 0.3, Total Protein 4.4L, Albumin 1.8L, Albumin/ Globulin Ratio 0.69L, Anion Gap 7L, White Blood Count 6.8, Red Blood Count 3.20L , Hemoglobin 9.1L, Hematocrit 28.5L, Mean Corpuscular Volume 89.2, Mean Corpuscular Hemoglobin 28.6, Mean Corpuscular Hemoglobin Concent 32.1, Red Cell Distribution Width 15.1H, Platelet Count 276, Neutrophils (%) (Auto) 79.8H, Lymphocytes (%) (Auto) 14.5L, Monocytes (%) (Auto) 2.9, Eosinophils (%) (Auto) 1.1, Basophils (%) (Auto) 0.2, Neutrophils # (Auto) 5.4, Lymphocytes # (Auto) 1.1L, Monocytes # (Auto) 0.2, Eosinophils # (Auto) 0.1, Basophils # (Auto) 0.0, Glomerular Filtration Rate > 60.0, Large Unclassified Cells # 0.1, Large Unclassified Cells % 1.5 10/09/16 05:21: Bedside Glucose (Misc Panel) 247H 10/09/16 11:58: Bedside Glucose (Misc Panel) 279H CBC/BMP Laboratory Tests 10/09/16 05:15 Calcium Level 7.6 L, Aspartate Amino Transf (AST/SGOT) 77 H, Alanine Aminotransferase (ALT/SGPT) 76, Alkaline Phosphatase 70, Total Bilirubin 0.3, Total Protein 4.4 L, Albumin 1.8 L, Red Blood Count 3.20 L, Mean Corpuscular Volume 89.2, Mean Corpuscular Hemoglobin 28.6, Mean Corpuscular Hemoglobin Concent 32.1, Red Cell Distribution Width 15.1 H, Neutrophils (%) (Auto) 79.8 H , Lymphocytes (%) (Auto) 14.5 L, Monocytes (%) (Auto) 2.9, Eosinophils (%) (Auto ) 1.1, Basophils (%) (Auto) 0.2, Neutrophils # (Auto) 5.4, Lymphocytes # (Auto) 1.1 L, Monocytes # (Auto) 0.2, Eosinophils # (Auto) 0.1, Basophils # (Auto) 0.0 Microbiology Microbiology 10/04/16 Blood Culture - Preliminary, Resulted No Growth after 72 hours. All specime... 10/04/16 Blood Culture - Preliminary, Resulted No Growth after 72 hours. All specime... 10/01/16 Blood Culture - Final, Complete NO GROWTH AFTER 5 DAYS 10/01/16 Blood Culture - Final, Complete NO GROWTH AFTER 5 DAYS 10/07/16 Acid Fast Stain, Received Pending 10/07/16 Mycobacterial Culture, Received Pending 10/07/16 Fungal Smear, Received Pending 10/07/16 Fungal Culture, Received Pending 10/07/16 Viral Culture, Received Pending 10/07/16 Herpes Virus DNA (PCR), Received Pending 10/07/16 Gram Stain - Final, Complete 10/07/16 CSF Culture - Final, Complete 10/03/16 Clostridium difficile (PCR) - Final, Complete 10/01/16 Gastrointestinal Tract Panel (PCR) - Final, Complete Enteropathogenic E.coli 10/01/16 Urine Culture - Final, Complete 3/25/17 Gram Stain - Final, Complete 10/01/16 Wound Culture - Final, Complete Proteus Mirabilis Enterococcus Faecalis KIKE THAKUR DO Oct 09, 2016 12:34
[2016-10-09 14:00] VITALS: BP 162/69
[2016-10-09 22:00] VITALS: BP 118/61
[2016-10-10] MEDS: VANCOMYCIN HCL 1,000 MG, VIAL MATE ADAPTER 1 EACH in D5W 250 ML IV SCH ×2 (03:08→15:02)
[2016-10-10] MEDS: IPRATROPIUM 0.5MG/ALBUTEROL 2.5MG INH SOL UD 3ML (DUONEB)(J7620) NEB SCH ×5 (04:00→20:50)
[2016-10-10] MEDS: LEVOTHYROXINE 0.0375MG (37.5MCG) PER 1/2 TABLET PO SCH (05:47)
[2016-10-10] MEDS: SODIUM CHLORIDE 0.9% INJ 10 ML SYR IV SCH ×3 (05:47→20:01)
[2016-10-10] MEDS: HEPARIN SOD (PORCINE) 5000 UNITS/ML VIAL SC SCH ×3 (05:47→20:01)
[2016-10-10 06:00] VITALS: BP 142/72
[2016-10-10 06:12] LABS: MEAN CORPUSCULAR HGB CONC 32.4 g/dl (32.0-36.5); MEAN CORPUSCULAR VOLUME 89.6 fl (80.0-96.0); RED CELL DISTRIBUTION WIDTH 15.1 % (11.5-14.5); WHITE BLOOD COUNT 6.7 K/mm3 (4.0-10.0)
[2016-10-10 06:30] LABS: ANION GAP 5 MEQ/L (8-16); BLOOD UREA NITROGEN 14 MG/DL (7-18); CALCIUM LEVEL 7.9 MG/DL (8.8-10.2); CARBON DIOXIDE LEVEL 34 MEQ/L (21-32); CHLORIDE LEVEL 98 MEQ/L (98-107); CREATININE FOR GFR 0.77 MG/DL (0.55-1.02); GLOMERULAR FILTRATION RATE > 60.0 (>45); GLUCOSE, FASTING 278 MG/DL (80-110); POTASSIUM SERUM 3.2 MEQ/L (3.5-5.1); SODIUM LEVEL 137 MEQ/L (136-145)
[2016-10-10] MEDS: MIRALAX *UNIT DOSE* 17GM PACKET PO SCH (08:33)
[2016-10-10] MEDS: DOCUSATE SODIUM 100 MG CAP PO SCH ×2 (08:33→19:55)
[2016-10-10] MEDS: HumaLOG INSULIN (NovoLOG) PER UNIT SC SCH ×4 (08:33→19:55)
[2016-10-10] MEDS: NYSTATIN 100,000 UNITS/GM TOPICAL PWD 15 GM TOP SCH ×2 (08:34→19:56)
[2016-10-10] MEDS: PANTOPRAZOLE 40MG INJ (PROTONIX) (C9113) IV SCH (08:34)
[2016-10-10] MEDS: SANTYL OINT 30GM TOP SCH (08:35)
[2016-10-10] MEDS ORDERED: POTASSIUM CHLORIDE 10 MEQ SR TABLET PO ONE (11:00)
[2016-10-10] MEDS: FUROSEMIDE 20 MG/2 ML VIAL (J1940) IV SCH ×2 (11:01→17:24)
[2016-10-10 14:00] VITALS: BP 123/67
--- NOTE | 2016-10-10 15:29 | IPNPDOC ---
Subjective Date Seen The patient was seen on 10/10/16. Subjective Chief Complaint/HPI The patient is a 61-year-old female admitted with a reason for visit of Septic Shock / Pnemonia. Events since last encounter pt seen and examined, more awake today but still confused, no overnight fevers Objective Physical Examination General Exam: Positive: No Acute Distress, Other (obtunded. opening eyes when spoken to) Eye Exam: Positive: Conjunctiva & lids normal, PERRLA ENT Exam: Positive: Atraumatic, Mucous membr. moist/pink Neck Exam: Negative: JVD Chest Exam: Positive: Diminished, Rales, Wheezing Heart Exam: Positive: Normal S1, Normal S2, Rate Normal Telemetry: Positive: No significant arrhythmia Abdomen Exam: Positive: Other (abdominal fat fold with fungal infection), Soft , Negative: Tenderness Extremity Exam: Negative: Tenderness Skin Exam: Positive: Other skin issue (patient noted to have multiple excoriations all over the skin including across the chest, under the breasts, and under the skin folds of the abdomen, and groin. In addition she also has excoriations noted on the lateral aspects of both knees bilaterally, as well as her feet which appear to have some wounds along the plantar and dorsal surface. No active purulent drainage or bleeding noted from the sites. However, there is some erythema surrounding the excoriations.) Assessment /Plan Problems (1) Femoral fracture Status: Acute Problem Text: * right femoral neck fracture * Dr armas is consulted * pt is not a surgical candidate * will reconsult PT to continue to work with pt (2) Septic shock Status: Acute Response to Treatment: Improving Problem Text: * wound culture positive for e facialis and proteus * continue IV antibiotics * pt was taken off of ampicillin because every time she was taken off of vanco she would spike fevers and have elevated WBC * lactic acid was repeated and it's still negative * LP was done and was negative for infection (3) Ileus Status: Resolved Problem Text: * continue current diet, pt is tolerating it well (4) Decubitus ulcer Status: Acute Problem Text: * present since admission. * pt appears to have multiple decubitus ulcers * wound care saw pt and recommended Santyl on her knees, elbows, and toes (5) Acute metabolic encephalopathy Status: Acute Response to Treatment: Improving Problem Text: * likely due to sepsis * abg did not show any co2 retention * Ct scan was done in another facility but showed no acute disease * ammonia level was less than 10 * LP was negative for infection (6) Morbid obesity Status: Chronic (7) Acute kidney injury Status: Resolved (8) Diarrhea Status: Resolved Problem Text: enteropathogenic e coli in GI panel . (9) Diabetes Status: Chronic Problem Text: lispro as per sliding scale. (10) Hyperlipidemia Status: Chronic (11) Hypothyroid Status: Chronic Plan/VTE VTE Prophylaxis Ordered?: Yes Plan/Urinary Catheter Reason for insertion/continuin: Critical Pt monitoring VS, I&O, 24H, Fishbone Vital Signs/I&O Vital Signs Date Time Temp Pulse Resp B/P Pulse Ox O2 Delivery O2 Flow Rate FiO2 10/10/16 14:00 99.7 99 20 123/67 92 Room Air I&O- Last 24 Hours up to 6 AM 10/10/16 06:00 Intake Total 3010 ml Output Total 3725 ml Balance -715 ml Laboratory Data 24H LABS Laboratory Tests 2 10/09/16 16:38: Bedside Glucose (Misc Panel) 256H 10/09/16 20:42: Bedside Glucose (Misc Panel) 280H 10/10/16 05:55: Anion Gap 5L, Blood Urea Nitrogen 14, Creatinine 0.77, Sodium Level 137, Potassium Level 3.2L, Chloride Level 98, Carbon Dioxide Level 34H, Calcium Level 7.9L, Glomerular Filtration Rate > 60.0 10/10/16 12:02: Bedside Glucose (Misc Panel) 276H CBC/BMP Laboratory Tests 10/10/16 05:55 Calcium Level 7.9 L, Red Blood Count 3.14 L, Mean Corpuscular Volume 89.6, Mean Corpuscular Hemoglobin 29.0, Mean Corpuscular Hemoglobin Concent 32.4, Red Cell Distribution Width 15.1 H Microbiology Microbiology 10/04/16 Blood Culture - Final, Complete NO GROWTH AFTER 5 DAYS 10/04/16 Blood Culture - Final, Complete NO GROWTH AFTER 5 DAYS 10/01/16 Blood Culture - Final, Complete NO GROWTH AFTER 5 DAYS 10/01/16 Blood Culture - Final, Complete NO GROWTH AFTER 5 DAYS 10/07/16 Acid Fast Stain, Received Pending 10/07/16 Mycobacterial Culture, Received Pending 10/07/16 Fungal Smear, Received Pending 10/07/16 Fungal Culture, Received Pending 10/07/16 Viral Culture, Received Pending 10/07/16 Herpes Virus DNA (PCR), Received Pending 10/07/16 Gram Stain - Final, Complete 10/07/16 CSF Culture - Final, Complete 10/03/16 Clostridium difficile (PCR) - Final, Complete 10/01/16 Gastrointestinal Tract Panel (PCR) - Final, Complete Enteropathogenic E.coli 10/01/16 Urine Culture - Final, Complete 10/01/16 Gram Stain - Final, Complete 10/01/16 Wound Culture - Final, Complete Proteus Mirabilis Enterococcus Faecalis KIKE THAKUR DO Oct 10, 2016 15:29
[2016-10-10 22:00] VITALS: BP 116/58
[2016-10-11] MEDS: VANCOMYCIN HCL 1,000 MG, VIAL MATE ADAPTER 1 EACH in D5W 250 ML IV SCH ×2 (03:06→15:27)
[2016-10-11] MEDS: IPRATROPIUM 0.5MG/ALBUTEROL 2.5MG INH SOL UD 3ML (DUONEB)(J7620) NEB SCH ×6 (04:00→19:41)
[2016-10-11] MEDS: HEPARIN SOD (PORCINE) 5000 UNITS/ML VIAL SC SCH ×3 (05:20→21:48)
[2016-10-11] MEDS: SODIUM CHLORIDE 0.9% INJ 10 ML SYR IV SCH ×2 (05:20→12:50)
[2016-10-11] MEDS: LEVOTHYROXINE 0.0375MG (37.5MCG) PER 1/2 TABLET PO SCH (05:20)
[2016-10-11 06:00] VITALS: BP 127/62
[2016-10-11 06:10] LABS: MEAN CORPUSCULAR HEMOGLOBIN 28.9 pg (27.0-33.0); MEAN CORPUSCULAR HGB CONC 32.2 g/dl (32.0-36.5); MEAN CORPUSCULAR VOLUME 89.7 fl (80.0-96.0); RED CELL DISTRIBUTION WIDTH 15.3 % (11.5-14.5); WHITE BLOOD COUNT 6.2 K/mm3 (4.0-10.0)
[2016-10-11 06:29] LABS: ANION GAP 5 MEQ/L (8-16); BLOOD UREA NITROGEN 13 MG/DL (7-18); CALCIUM LEVEL 7.9 MG/DL (8.8-10.2); CARBON DIOXIDE LEVEL 35 MEQ/L (21-32); CHLORIDE LEVEL 98 MEQ/L (98-107); CREATININE FOR GFR 0.73 MG/DL (0.55-1.02); GLOMERULAR FILTRATION RATE > 60.0 (>45); GLUCOSE, FASTING 261 MG/DL (80-110); POTASSIUM SERUM 3.5 MEQ/L (3.5-5.1); SODIUM LEVEL 138 MEQ/L (136-145)
[2016-10-11] MEDS: DOCUSATE SODIUM 100 MG CAP PO SCH ×3 (08:14→21:48)
[2016-10-11] MEDS: HumaLOG INSULIN (NovoLOG) PER UNIT SC SCH ×4 (08:14→21:48)
[2016-10-11] MEDS: POTASSIUM CHLORIDE 10 MEQ SR TABLET PO SCH (08:14)
[2016-10-11] MEDS: NYSTATIN 100,000 UNITS/GM TOPICAL PWD 15 GM TOP SCH ×2 (08:15→21:49)
[2016-10-11] MEDS: MIRALAX *UNIT DOSE* 17GM PACKET PO SCH (08:15)
[2016-10-11] MEDS: FUROSEMIDE 20 MG/2 ML VIAL (J1940) IV SCH ×2 (08:15→17:59)
[2016-10-11] MEDS: PANTOPRAZOLE 40MG TAB (PROTONIX) PO SCH (08:17)
[2016-10-11] MEDS: SANTYL OINT 30GM TOP SCH (08:17)
[2016-10-11] MEDS: LevoFLOXacin IV 500 MG in APPROPRIATE DILUENT 1 EA IV SCH (08:22)
[2016-10-11] MEDS ORDERED: PANTOPRAZOLE 40MG TAB (PROTONIX) PO SCH (09:00)
[2016-10-11 14:00] VITALS: BP 143/67
[2016-10-11] MEDS ORDERED: SLF 3 ML SYR IV PRN (18:30)
[2016-10-11] MEDS: SLF 3 ML SYR IV SCH (21:49)
--- NOTE | 2016-10-11 21:51 | IPNPDOC ---
Text Note Date of Service The patient was seen on 10/11/16. NOTE Subjective: Pt feels well. Denies any complaints. No N/V/abd pain. Objective: Vitals: (see below) General: No acute distress, laying comfortably in bed. HEENT: Moist mucous membranes. Neck: No JVD or lymphadenopathy Cardiac: RRR, No murmurs Pulm: Diminished breath sounds bilateral bases. No wheezing, rhonchi Abd: NT/ND + BS. Obese. Left lower fold wound. Ext: No edema or cyanosis. Wounds - sacral, bilateral elbows, bilateral knees, mild drainage. Labs (see below) Images: Assessment/Plan 1. Femur fracture- right. Evaluated by orthopedics and not a surgical candidate at this time. Physical therapy consulted. Patient states she had a mechanical fall when shoveling snow. 2. Decubitus ulcer- present since admission. Has multiple ulcers on bilateral knees, elbows, toes. Wound care. 3. Metabolic encephalopathy- resolving. Secondary to sepsis. 4. Septic shock- resolving. Wound culture with Enterococcus faecalis and Proteus. On vancomycin. Levaquin added. 5. Morbid obesity 6. Acute kidney injury resolved 7. Diarrhea with enteropathogenic Escherichia coli- resolved 8. Diabetes mellitus-sliding scale insulin 9. Hypothyroidism- continue Synthroid 10. Hyperlipidemia- continue statin DVT prophy: Heparin subcutaneous VS,Fishbone, I+O VS, Fishbone, I+O Laboratory Tests 10/11/16 05:19 Calcium Level 7.9 L 10/11/16 05:55 Red Blood Count 2.98 L, Mean Corpuscular Volume 89.7, Mean Corpuscular Hemoglobin 28.9, Mean Corpuscular Hemoglobin Concent 32.2, Red Cell Distribution Width 15.3 H Vital Signs Date Time Temp Pulse Resp B/P Pulse Ox O2 Delivery O2 Flow Rate FiO2 10/11/16 14:00 99.8 99 16 143/67 91 Room Air I&O- Last 24 Hours up to 6 AM 10/11/16 06:00 Intake Total 1285 ml Output Total 4150 ml Balance -2865 ml SOFIA NORTON MD Oct 11, 2016 21:51
[2016-10-11 22:00] VITALS: BP 145/69
[2016-10-12] MEDS: VANCOMYCIN HCL 1,000 MG, VIAL MATE ADAPTER 1 EACH in D5W 250 ML IV SCH ×2 (02:39→14:44)
[2016-10-12] MEDS: IPRATROPIUM 0.5MG/ALBUTEROL 2.5MG INH SOL UD 3ML (DUONEB)(J7620) NEB SCH ×6 (04:00→19:24)
[2016-10-12] MEDS: LEVOTHYROXINE 0.0375MG (37.5MCG) PER 1/2 TABLET PO SCH (05:32)
[2016-10-12] MEDS: SLF 3 ML SYR IV SCH ×3 (05:32→21:26)
[2016-10-12] MEDS: HEPARIN SOD (PORCINE) 5000 UNITS/ML VIAL SC SCH ×3 (05:32→21:25)
[2016-10-12 06:00] VITALS: BP 143/67
[2016-10-12] MEDS: DOCUSATE SODIUM 100 MG CAP PO SCH ×2 (08:09→21:24)
[2016-10-12] MEDS: PANTOPRAZOLE 40MG TAB (PROTONIX) PO SCH (08:09)
[2016-10-12] MEDS: HumaLOG INSULIN (NovoLOG) PER UNIT SC SCH ×4 (08:09→21:25)
[2016-10-12] MEDS: POTASSIUM CHLORIDE 10 MEQ SR TABLET PO SCH (08:09)
[2016-10-12] MEDS: MIRALAX *UNIT DOSE* 17GM PACKET PO SCH (08:10)
[2016-10-12] MEDS: NYSTATIN 100,000 UNITS/GM TOPICAL PWD 15 GM TOP SCH ×2 (08:10→21:25)
[2016-10-12] MEDS: LevoFLOXacin IV 500 MG in APPROPRIATE DILUENT 1 EA IV SCH (08:10)
[2016-10-12] MEDS: SANTYL OINT 30GM TOP SCH (08:11)
[2016-10-12 08:29] LABS: BASO % 0.4 % (0.0-1.0); EOS # 0.1 K/mm3 (0.0-0.50); EOS % 1.8 % (0.0-3.0); LARGE UNSTAINED CELL # 0.1 K/mm3 (0.0-0.4); LARGE UNSTAINED CELL % 1.4 % (0.0-4.0); LYMPH % 14.2 % (24.0-44.0); MEAN CORPUSCULAR HEMOGLOBIN 28.5 pg (27.0-33.0); MEAN CORPUSCULAR HGB CONC 31.8 g/dl (32.0-36.5); MEAN CORPUSCULAR VOLUME 89.5 fl (80.0-96.0); MONO # 0.2 K/mm3 (0.0-0.8); MONO % 3.5 % (0.0-5.0); NEUTROPHILS # 5.2 K/mm3 (1.8-7.7); NEUTROPHILS % 78.7 % (36.0-66.0); PLATELET COUNT, AUTOMATED 319 k/mm3 (150-450); RED CELL DISTRIBUTION WIDTH 15.2 % (11.5-14.5); WHITE BLOOD COUNT 6.5 K/mm3 (4.0-10.0)
[2016-10-12 08:58] LABS: ALBUMIN/GLOBULIN RATIO 0.69 (1.00-1.93); ALKALINE PHOSPHATASE 72 U/L (45-117); ALT/SGPT 66 U/L (12-78); ANION GAP 8 MEQ/L (8-16); AST/SGOT 34 U/L (15-37); BILIRUBIN,TOTAL 0.4 MG/DL (0.2-1.0); BLOOD UREA NITROGEN 14 MG/DL (7-18); CALCIUM LEVEL 7.9 MG/DL (8.8-10.2); CARBON DIOXIDE LEVEL 34 MEQ/L (21-32); CHLORIDE LEVEL 97 MEQ/L (98-107); CREATININE FOR GFR 0.74 MG/DL (0.55-1.02); GLOMERULAR FILTRATION RATE > 60.0 (>45); GLUCOSE, FASTING 281 MG/DL (80-110); MAGNESIUM LEVEL 1.4 MG/DL (1.8-2.4); POTASSIUM SERUM 3.2 MEQ/L (3.5-5.1); SODIUM LEVEL 139 MEQ/L (136-145); TOTAL PROTEIN 4.9 GM/DL (6.4-8.2)
[2016-10-12 09:07] LABS: ERYTHROCYTE SEDIMENTATION RATE 73 mm/hr (0-30)
--- NOTE | 2016-10-12 12:42 | IPNPDOC ---
Text Note Date of Service The patient was seen on 10/12/16. NOTE Subjective: Pt feels well. Denies any complaints. No N/V/abd pain. Objective: Vitals: (see below) General: No acute distress, laying comfortably in bed. HEENT: Moist mucous membranes. Neck: No JVD or lymphadenopathy Cardiac: RRR, No murmurs Pulm: Diminished breath sounds bilateral bases. No wheezing, rhonchi Abd: NT/ND + BS. Obese. Left lower fold wound. Ext: No edema or cyanosis. Wounds - sacral, bilateral elbows, bilateral knees, no drainage. Labs (see below) Images: Assessment/Plan 1. Femur fracture- right. Evaluated by orthopedics and not a surgical candidate at this time. Physical therapy consulted. Patient states she had a mechanical fall when shoveling snow. 2. Decubitus ulcer- present since admission. Has multiple ulcers on bilateral knees, elbows, toes. Wound care. 3. Metabolic encephalopathy- resolving. Secondary to sepsis. 4. Septic shock- resolving. Wound culture with Enterococcus faecalis and Proteus. On vancomycin. Levaquin added. 5. Morbid obesity 6. Acute kidney injury resolved 7. Diarrhea with enteropathogenic Escherichia coli- resolved 8. Diabetes mellitus-sliding scale insulin 9. Hypothyroidism- continue Synthroid 10. Hyperlipidemia- continue statin DVT prophy: Heparin subcutaneous Will need at acute/subacute rehab. VS,Fishbone, I+O VS, Fishbone, I+O Laboratory Tests 10/12/16 08:09 Calcium Level 7.9 L, Aspartate Amino Transf (AST/SGOT) 34, Alanine Aminotransferase (ALT/SGPT) 66, Alkaline Phosphatase 72, Total Bilirubin 0.4, Total Protein 4.9 L, Albumin 2.0 L, Red Blood Count 3.20 L, Mean Corpuscular Volume 89.5, Mean Corpuscular Hemoglobin 28.5, Mean Corpuscular Hemoglobin Concent 31.8 L, Red Cell Distribution Width 15.2 H, Neutrophils (%) (Auto) 78.7 H, Lymphocytes (%) (Auto) 14.2 L, Monocytes (%) (Auto) 3.5, Eosinophils (%) ( Auto) 1.8, Basophils (%) (Auto) 0.4, Neutrophils # (Auto) 5.2, Lymphocytes # ( Auto) 1.0 L, Monocytes # (Auto) 0.2, Eosinophils # (Auto) 0.1, Basophils # (Auto ) 0.0 Vital Signs Date Time Temp Pulse Resp B/P Pulse Ox O2 Delivery O2 Flow Rate FiO2 10/12/16 08:00 Room Air 10/12/16 06:00 98.9 90 18 143/67 91 I&O- Last 24 Hours up to 6 AM 10/12/16 06:00 Intake Total 2720 ml Output Total 1475 ml Balance 1245 ml SOFIA NORTON MD Oct 12, 2016 12:42
[2016-10-12 14:00] VITALS: BP 133/83
[2016-10-12 22:00] VITALS: BP 137/66
[2016-10-13] MEDS: VANCOMYCIN HCL 1,000 MG, VIAL MATE ADAPTER 1 EACH in D5W 250 ML IV SCH (02:38)
[2016-10-13] MEDS: IPRATROPIUM 0.5MG/ALBUTEROL 2.5MG INH SOL UD 3ML (DUONEB)(J7620) NEB SCH ×6 (03:42→20:06)
[2016-10-13] MEDS: LEVOTHYROXINE 0.0375MG (37.5MCG) PER 1/2 TABLET PO SCH (05:33)
[2016-10-13] MEDS: SLF 3 ML SYR IV SCH ×3 (05:34→21:12)
[2016-10-13] MEDS: HEPARIN SOD (PORCINE) 5000 UNITS/ML VIAL SC SCH ×3 (05:34→21:11)
[2016-10-13 06:00] VITALS: BP 132/68
[2016-10-13 06:55] LABS: MEAN CORPUSCULAR HEMOGLOBIN 28.7 pg (27.0-33.0); MEAN CORPUSCULAR HGB CONC 32.1 g/dl (32.0-36.5); MEAN CORPUSCULAR VOLUME 89.4 fl (80.0-96.0); RED CELL DISTRIBUTION WIDTH 15.2 % (11.5-14.5); WHITE BLOOD COUNT 5.3 K/mm3 (4.0-10.0)
[2016-10-13 07:06] LABS: ANION GAP 7 MEQ/L (8-16); BLOOD UREA NITROGEN 13 MG/DL (7-18); CALCIUM LEVEL 8.3 MG/DL (8.8-10.2); CARBON DIOXIDE LEVEL 35 MEQ/L (21-32); CHLORIDE LEVEL 97 MEQ/L (98-107); CREATININE FOR GFR 0.75 MG/DL (0.55-1.02); GLOMERULAR FILTRATION RATE > 60.0 (>45); GLUCOSE, FASTING 257 MG/DL (80-110); SODIUM LEVEL 139 MEQ/L (136-145)
[2016-10-13 07:21] LABS: POTASSIUM SERUM 2.9 MEQ/L (3.5-5.1)
[2016-10-13] MEDS ORDERED: POTASSIUM CHLORIDE 10 MEQ SR TABLET PO ONE ×2 (08:00→10:00)
[2016-10-13] MEDS: HumaLOG INSULIN (NovoLOG) PER UNIT SC SCH ×4 (08:46→21:00)
[2016-10-13] MEDS: MIRALAX *UNIT DOSE* 17GM PACKET PO SCH (08:46)
[2016-10-13] MEDS: POTASSIUM CHLORIDE 10 MEQ SR TABLET PO SCH (08:47)
[2016-10-13] MEDS: PANTOPRAZOLE 40MG TAB (PROTONIX) PO SCH (08:48)
[2016-10-13] MEDS: DOCUSATE SODIUM 100 MG CAP PO SCH ×2 (08:48→21:11)
[2016-10-13] MEDS: NYSTATIN 100,000 UNITS/GM TOPICAL PWD 15 GM TOP SCH ×2 (08:48→21:12)
[2016-10-13] MEDS: LevoFLOXacin IV 500 MG in APPROPRIATE DILUENT 1 EA IV SCH (08:48)
[2016-10-13] MEDS: SANTYL OINT 30GM TOP SCH (08:49)
[2016-10-13] MEDS: LEVEMIR (INSULIN DETEMIR) 1 UNITS/0.01ML SC SCH (10:23)
[2016-10-13 14:00] VITALS: BP 132/63
--- NOTE | 2016-10-13 14:28 | IPNPDOC ---
Text Note Date of Service The patient was seen on 10/13/16. NOTE Subjective: Pt feels well. Denies any complaints. No N/V/abd pain. Objective: Vitals: (see below) General: No acute distress, laying comfortably in bed. HEENT: Moist mucous membranes. Neck: No JVD or lymphadenopathy Cardiac: RRR, No murmurs Pulm: Diminished breath sounds bilateral bases. No wheezing, rhonchi Abd: NT/ND + BS. Obese. Left lower fold wound. Ext: No edema or cyanosis. Wounds - sacral, bilateral elbows, bilateral knees, no drainage. Labs (see below) Images: Assessment/Plan 1. Femur fracture- right. Evaluated by orthopedics and not a surgical candidate at this time. Physical therapy consulted. Minimize weight bearing. Patient states she had a mechanical fall when shoveling snow. 2. Decubitus ulcer- present since admission. Has multiple ulcers on bilateral knees, elbows, toes. Wound care. 3. Metabolic encephalopathy- resolving. Secondary to sepsis. 4. Septic shock- resolved. Wound culture with Enterococcus faecalis and Proteus. On Levaquin. D/c vancomycin. 5. Morbid obesity 6. Acute kidney injury resolved 7. Diarrhea with enteropathogenic Escherichia coli- resolved 8. Diabetes mellitus-sliding scale insulin 9. Hypothyroidism- continue Synthroid 10. Hyperlipidemia- continue statin DVT prophy: Heparin subcutaneous Will need at acute/subacute rehab. VS,Fishbone, I+O VS, Fishbone, I+O Laboratory Tests 10/13/16 06:29 Calcium Level 8.3 L, Red Blood Count 3.17 L, Mean Corpuscular Volume 89.4, Mean Corpuscular Hemoglobin 28.7, Mean Corpuscular Hemoglobin Concent 32.1, Red Cell Distribution Width 15.2 H Vital Signs Date Time Temp Pulse Resp B/P Pulse Ox O2 Delivery O2 Flow Rate FiO2 10/13/16 09:00 Room Air 10/13/16 06:00 98.6 96 18 132/68 92 I&O- Last 24 Hours up to 6 AM 10/13/16 06:00 Intake Total 2200 ml Output Total 850 ml Balance 1350 ml SOFIA NORTON MD Oct 13, 2016 14:28
[2016-10-13 22:00] VITALS: BP 116/58
[2016-10-14] MEDS: IPRATROPIUM 0.5MG/ALBUTEROL 2.5MG INH SOL UD 3ML (DUONEB)(J7620) NEB SCH ×7 (01:22→23:36)
[2016-10-14] MEDS: LEVOTHYROXINE 0.0375MG (37.5MCG) PER 1/2 TABLET PO SCH (05:41)
[2016-10-14] MEDS: HEPARIN SOD (PORCINE) 5000 UNITS/ML VIAL SC SCH ×3 (05:41→21:01)
[2016-10-14] MEDS: SLF 3 ML SYR IV SCH ×2 (05:42→13:34)
[2016-10-14 06:00] VITALS: BP 132/70
[2016-10-14] MEDS ORDERED: LevoFLOXacin 500 MG TABLET PO SCH (06:00)
[2016-10-14 06:44] LABS: MEAN CORPUSCULAR HEMOGLOBIN 29.1 pg (27.0-33.0); MEAN CORPUSCULAR HGB CONC 32.2 g/dl (32.0-36.5); MEAN CORPUSCULAR VOLUME 90.5 fl (80.0-96.0); RED CELL DISTRIBUTION WIDTH 15.6 % (11.5-14.5)
[2016-10-14 06:53] LABS: ANION GAP 5 MEQ/L (8-16); BLOOD UREA NITROGEN 13 MG/DL (7-18); CALCIUM LEVEL 8.5 MG/DL (8.8-10.2); CARBON DIOXIDE LEVEL 33 MEQ/L (21-32); CHLORIDE LEVEL 101 MEQ/L (98-107); CREATININE FOR GFR 0.75 MG/DL (0.55-1.02); GLOMERULAR FILTRATION RATE > 60.0 (>45); GLUCOSE, FASTING 194 MG/DL (80-110); POTASSIUM SERUM 3.5 MEQ/L (3.5-5.1); SODIUM LEVEL 139 MEQ/L (136-145)
[2016-10-14] MEDS: LEVEMIR (INSULIN DETEMIR) 1 UNITS/0.01ML SC SCH (08:18)
[2016-10-14] MEDS: HumaLOG INSULIN (NovoLOG) PER UNIT SC SCH ×4 (08:18→20:53)
[2016-10-14] MEDS: MIRALAX *UNIT DOSE* 17GM PACKET PO SCH (08:18)
[2016-10-14] MEDS: POTASSIUM CHLORIDE 10 MEQ SR TABLET PO SCH (08:19)
[2016-10-14] MEDS: DOCUSATE SODIUM 100 MG CAP PO SCH ×2 (08:19→21:00)
[2016-10-14] MEDS: SANTYL OINT 30GM TOP SCH (08:19)
[2016-10-14] MEDS: NYSTATIN 100,000 UNITS/GM TOPICAL PWD 15 GM TOP SCH ×2 (08:19→21:01)
[2016-10-14] MEDS: PANTOPRAZOLE 40MG TAB (PROTONIX) PO SCH (08:19)
--- NOTE | 2016-10-14 11:22 | IPNPDOC ---
Text Note Date of Service The patient was seen on 10/14/16. NOTE Subjective: Pt feels well. Denies any complaints. No N/V/abd pain. Objective: Vitals: (see below) General: No acute distress, laying comfortably in bed. HEENT: Moist mucous membranes. Neck: No JVD or lymphadenopathy Cardiac: RRR, No murmurs Pulm: Diminished breath sounds bilateral bases. No wheezing, rhonchi Abd: NT/ND + BS. Obese. Left lower fold wound. Ext: No edema or cyanosis. Wounds - sacral, bilateral elbows, bilateral knees, no drainage. Labs (see below) Images: Assessment/Plan 1. Femur fracture- right. Evaluated by orthopedics and not a surgical candidate at this time given her significant comorbidities and minimal hip pain. Physical therapy consulted. Minimize weight bearing. Patient states she had a mechanical fall when shoveling snow. 2. Decubitus ulcer- present since admission. Has multiple ulcers on bilateral knees, elbows, toes. Wound care. 3. Metabolic encephalopathy- resolved. Secondary to sepsis. 4. Septic shock- resolved. Wound culture with Enterococcus faecalis and Proteus. S/p Levaquin/vancomycin. 5. Morbid obesity 6. Acute kidney injury resolved 7. Diarrhea with enteropathogenic Escherichia coli- resolved 8. Diabetes mellitus-sliding scale insulin 9. Hypothyroidism- continue Synthroid 10. Hyperlipidemia- continue statin DVT prophy: Heparin subcutaneous Will need at acute/subacute rehab. Transfer to [facility]. VS,Best, I+O VS, Fishbone, I+O Laboratory Tests 10/14/16 06:15 Calcium Level 8.5 L, Red Blood Count 3.09 L, Mean Corpuscular Volume 90.5, Mean Corpuscular Hemoglobin 29.1, Mean Corpuscular Hemoglobin Concent 32.2, Red Cell Distribution Width 15.6 H Vital Signs Date Time Temp Pulse Resp B/P Pulse Ox O2 Delivery O2 Flow Rate FiO2 10/14/16 09:09 Room Air 10/14/16 06:00 98.9 86 18 132/70 92 I&O- Last 24 Hours up to 6 AM 10/14/16 06:00 Intake Total 2080 ml Output Total 1400 ml Balance 680 ml SOFIA NORTON MD Oct 14, 2016 11:22
[2016-10-15] MEDS: IPRATROPIUM 0.5MG/ALBUTEROL 2.5MG INH SOL UD 3ML (DUONEB)(J7620) NEB SCH ×5 (04:00→23:15)
[2016-10-15] MEDS: LEVOTHYROXINE 0.0375MG (37.5MCG) PER 1/2 TABLET PO SCH (05:41)
[2016-10-15] MEDS: HEPARIN SOD (PORCINE) 5000 UNITS/ML VIAL SC SCH ×3 (05:41→21:28)
[2016-10-15 06:00] VITALS: BP 132/64
[2016-10-15 06:04] LABS: MEAN CORPUSCULAR HEMOGLOBIN 29.1 pg (27.0-33.0); MEAN CORPUSCULAR HGB CONC 31.8 g/dl (32.0-36.5); MEAN CORPUSCULAR VOLUME 91.6 fl (80.0-96.0); RED CELL DISTRIBUTION WIDTH 15.4 % (11.5-14.5); WHITE BLOOD COUNT 3.8 K/mm3 (4.0-10.0)
[2016-10-15 06:15] LABS: ANION GAP 7 MEQ/L (8-16); BLOOD UREA NITROGEN 13 MG/DL (7-18); CALCIUM LEVEL 8.6 MG/DL (8.8-10.2); CARBON DIOXIDE LEVEL 32 MEQ/L (21-32); CHLORIDE LEVEL 102 MEQ/L (98-107); CREATININE FOR GFR 0.69 MG/DL (0.55-1.02); GLOMERULAR FILTRATION RATE > 60.0 (>45); GLUCOSE, FASTING 205 MG/DL (80-110); POTASSIUM SERUM 3.5 MEQ/L (3.5-5.1); SODIUM LEVEL 141 MEQ/L (136-145)
[2016-10-15] MEDS: MIRALAX *UNIT DOSE* 17GM PACKET PO SCH (08:29)
[2016-10-15] MEDS: LEVEMIR (INSULIN DETEMIR) 1 UNITS/0.01ML SC SCH (08:30)
[2016-10-15] MEDS: DOCUSATE SODIUM 100 MG CAP PO SCH ×2 (08:30→21:28)
[2016-10-15] MEDS: PANTOPRAZOLE 40MG TAB (PROTONIX) PO SCH (08:30)
[2016-10-15] MEDS: POTASSIUM CHLORIDE 10 MEQ SR TABLET PO SCH (08:30)
[2016-10-15] MEDS: HumaLOG INSULIN (NovoLOG) PER UNIT SC SCH ×4 (08:30→20:24)
[2016-10-15] MEDS: NYSTATIN 100,000 UNITS/GM TOPICAL PWD 15 GM TOP SCH ×2 (08:31→21:28)
[2016-10-15] MEDS: SANTYL OINT 30GM TOP SCH (08:31)
[2016-10-16] MEDS: IPRATROPIUM 0.5MG/ALBUTEROL 2.5MG INH SOL UD 3ML (DUONEB)(J7620) NEB SCH ×6 (04:00→19:44)
[2016-10-16 05:51] LABS: MEAN CORPUSCULAR HEMOGLOBIN 28.7 pg (27.0-33.0); MEAN CORPUSCULAR HGB CONC 31.3 g/dl (32.0-36.5); MEAN CORPUSCULAR VOLUME 91.8 fl (80.0-96.0); RED CELL DISTRIBUTION WIDTH 15.5 % (11.5-14.5); WHITE BLOOD COUNT 3.5 K/mm3 (4.0-10.0)
[2016-10-16] MEDS: LEVOTHYROXINE 0.0375MG (37.5MCG) PER 1/2 TABLET PO SCH (05:57)
[2016-10-16] MEDS: HEPARIN SOD (PORCINE) 5000 UNITS/ML VIAL SC SCH ×3 (05:57→20:47)
[2016-10-16 06:00] VITALS: BP 131/63
[2016-10-16 06:05] LABS: ANION GAP 6 MEQ/L (8-16); BLOOD UREA NITROGEN 13 MG/DL (7-18); CALCIUM LEVEL 8.2 MG/DL (8.8-10.2); CARBON DIOXIDE LEVEL 30 MEQ/L (21-32); CHLORIDE LEVEL 104 MEQ/L (98-107); CREATININE FOR GFR 0.67 MG/DL (0.55-1.02); GLOMERULAR FILTRATION RATE > 60.0 (>45); GLUCOSE, FASTING 188 MG/DL (80-110); POTASSIUM SERUM 3.6 MEQ/L (3.5-5.1); SODIUM LEVEL 140 MEQ/L (136-145)
[2016-10-16] MEDS: PANTOPRAZOLE 40MG TAB (PROTONIX) PO SCH (08:06)
[2016-10-16] MEDS: HumaLOG INSULIN (NovoLOG) PER UNIT SC SCH ×4 (08:06→20:46)
[2016-10-16] MEDS: POTASSIUM CHLORIDE 10 MEQ SR TABLET PO SCH (08:06)
[2016-10-16] MEDS: MIRALAX *UNIT DOSE* 17GM PACKET PO SCH (08:06)
[2016-10-16] MEDS: DOCUSATE SODIUM 100 MG CAP PO SCH ×2 (08:06→20:48)
[2016-10-16] MEDS: NYSTATIN 100,000 UNITS/GM TOPICAL PWD 15 GM TOP SCH ×2 (08:07→20:48)
[2016-10-16] MEDS: SANTYL OINT 30GM TOP SCH (08:07)
[2016-10-16] MEDS: LEVEMIR (INSULIN DETEMIR) 1 UNITS/0.01ML SC SCH (08:07)
[2016-10-17] MEDS: IPRATROPIUM 0.5MG/ALBUTEROL 2.5MG INH SOL UD 3ML (DUONEB)(J7620) NEB SCH ×6 (04:00→19:10)
[2016-10-17 06:00] VITALS: BP 142/79
[2016-10-17] MEDS: LEVOTHYROXINE 0.0375MG (37.5MCG) PER 1/2 TABLET PO SCH (06:50)
[2016-10-17] MEDS: HEPARIN SOD (PORCINE) 5000 UNITS/ML VIAL SC SCH ×3 (06:51→21:27)
[2016-10-17] MEDS: PANTOPRAZOLE 40MG TAB (PROTONIX) PO SCH (09:12)
[2016-10-17] MEDS: LEVEMIR (INSULIN DETEMIR) 1 UNITS/0.01ML SC SCH (09:12)
[2016-10-17] MEDS: HumaLOG INSULIN (NovoLOG) PER UNIT SC SCH ×4 (09:12→20:33)
[2016-10-17] MEDS: DOCUSATE SODIUM 100 MG CAP PO SCH ×2 (09:12→21:26)
[2016-10-17] MEDS: POTASSIUM CHLORIDE 10 MEQ SR TABLET PO SCH (09:13)
[2016-10-17] MEDS: MIRALAX *UNIT DOSE* 17GM PACKET PO SCH (09:13)
[2016-10-17] MEDS: NYSTATIN 100,000 UNITS/GM TOPICAL PWD 15 GM TOP SCH ×2 (09:14→21:27)
[2016-10-17] MEDS: SANTYL OINT 30GM TOP SCH (09:14)
[2016-10-18] MEDS: IPRATROPIUM 0.5MG/ALBUTEROL 2.5MG INH SOL UD 3ML (DUONEB)(J7620) NEB SCH ×7 (03:48→23:37)
[2016-10-18] MEDS: LEVOTHYROXINE 0.0375MG (37.5MCG) PER 1/2 TABLET PO SCH (05:29)
[2016-10-18] MEDS: HEPARIN SOD (PORCINE) 5000 UNITS/ML VIAL SC SCH ×3 (05:30→21:17)
[2016-10-18 06:00] VITALS: BP 138/69
[2016-10-18] MEDS: HumaLOG INSULIN (NovoLOG) PER UNIT SC SCH ×4 (08:38→20:56)
[2016-10-18] MEDS: POTASSIUM CHLORIDE 10 MEQ SR TABLET PO SCH (08:39)
[2016-10-18] MEDS: LEVEMIR (INSULIN DETEMIR) 1 UNITS/0.01ML SC SCH (08:39)
[2016-10-18] MEDS: PANTOPRAZOLE 40MG TAB (PROTONIX) PO SCH (08:39)
[2016-10-18] MEDS: MIRALAX *UNIT DOSE* 17GM PACKET PO SCH (08:39)
[2016-10-18] MEDS: DOCUSATE SODIUM 100 MG CAP PO SCH ×2 (08:39→21:00)
[2016-10-18] MEDS: NYSTATIN 100,000 UNITS/GM TOPICAL PWD 15 GM TOP SCH ×2 (08:40→21:18)
[2016-10-18] MEDS: SANTYL OINT 30GM TOP SCH (08:41)
[2016-10-19] MEDS: IPRATROPIUM 0.5MG/ALBUTEROL 2.5MG INH SOL UD 3ML (DUONEB)(J7620) NEB SCH ×5 (04:00→20:00)
[2016-10-19] MEDS: LEVOTHYROXINE 0.0375MG (37.5MCG) PER 1/2 TABLET PO SCH (05:29)
[2016-10-19] MEDS: HEPARIN SOD (PORCINE) 5000 UNITS/ML VIAL SC SCH ×3 (05:29→21:09)
[2016-10-19 06:00] VITALS: BP 130/64
[2016-10-19] MEDS: PANTOPRAZOLE 40MG TAB (PROTONIX) PO SCH (08:32)
[2016-10-19] MEDS: HumaLOG INSULIN (NovoLOG) PER UNIT SC SCH ×4 (08:33→21:00)
[2016-10-19] MEDS: POTASSIUM CHLORIDE 10 MEQ SR TABLET PO SCH (08:33)
[2016-10-19] MEDS: LEVEMIR (INSULIN DETEMIR) 1 UNITS/0.01ML SC SCH (08:34)
[2016-10-19] MEDS: DOCUSATE SODIUM 100 MG CAP PO SCH ×2 (08:34→21:09)
[2016-10-19] MEDS: NYSTATIN 100,000 UNITS/GM TOPICAL PWD 15 GM TOP SCH ×2 (08:34→21:09)
[2016-10-19] MEDS: SANTYL OINT 30GM TOP SCH (08:34)
[2016-10-19] MEDS: MIRALAX *UNIT DOSE* 17GM PACKET PO SCH (08:35)
[2016-10-20] MEDS: IPRATROPIUM 0.5MG/ALBUTEROL 2.5MG INH SOL UD 3ML (DUONEB)(J7620) NEB SCH ×6 (04:00→20:00)
[2016-10-20 06:00] VITALS: BP 137/62
[2016-10-20] MEDS: HEPARIN SOD (PORCINE) 5000 UNITS/ML VIAL SC SCH ×3 (06:08→21:32)
[2016-10-20] MEDS: LEVOTHYROXINE 0.0375MG (37.5MCG) PER 1/2 TABLET PO SCH (06:08)
[2016-10-20] MEDS: HumaLOG INSULIN (NovoLOG) PER UNIT SC SCH ×4 (07:55→20:28)
[2016-10-20] MEDS: MIRALAX *UNIT DOSE* 17GM PACKET PO SCH (07:56)
[2016-10-20] MEDS: PANTOPRAZOLE 40MG TAB (PROTONIX) PO SCH (07:56)
[2016-10-20] MEDS: LEVEMIR (INSULIN DETEMIR) 1 UNITS/0.01ML SC SCH (07:56)
[2016-10-20] MEDS: DOCUSATE SODIUM 100 MG CAP PO SCH ×2 (07:56→21:00)
[2016-10-20] MEDS: POTASSIUM CHLORIDE 10 MEQ SR TABLET PO SCH (07:56)
[2016-10-20] MEDS: NYSTATIN 100,000 UNITS/GM TOPICAL PWD 15 GM TOP SCH ×2 (07:57→21:32)
[2016-10-20] MEDS: SANTYL OINT 30GM TOP SCH (07:57)
[2016-10-21] MEDS: IPRATROPIUM 0.5MG/ALBUTEROL 2.5MG INH SOL UD 3ML (DUONEB)(J7620) NEB SCH ×6 (03:58→19:46)
[2016-10-21 05:50] VITALS: BP 139/72
[2016-10-21] MEDS: HEPARIN SOD (PORCINE) 5000 UNITS/ML VIAL SC SCH ×3 (05:58→21:51)
[2016-10-21] MEDS: LEVOTHYROXINE 0.0375MG (37.5MCG) PER 1/2 TABLET PO SCH (05:59)
[2016-10-21] MEDS: DOCUSATE SODIUM 100 MG CAP PO SCH ×2 (09:00→20:27)
[2016-10-21] MEDS: MIRALAX *UNIT DOSE* 17GM PACKET PO SCH (09:00)
[2016-10-21] MEDS: HumaLOG INSULIN (NovoLOG) PER UNIT SC SCH ×4 (09:48→20:27)
[2016-10-21] MEDS: LEVEMIR (INSULIN DETEMIR) 1 UNITS/0.01ML SC SCH (09:49)
[2016-10-21] MEDS: POTASSIUM CHLORIDE 10 MEQ SR TABLET PO SCH (09:49)
[2016-10-21] MEDS: PANTOPRAZOLE 40MG TAB (PROTONIX) PO SCH (09:49)
[2016-10-21] MEDS: NYSTATIN 100,000 UNITS/GM TOPICAL PWD 15 GM TOP SCH ×2 (09:50→20:27)
[2016-10-21] MEDS: SANTYL OINT 30GM TOP SCH (09:51)
[2016-10-22] MEDS: HEPARIN SOD (PORCINE) 5000 UNITS/ML VIAL SC SCH ×3 (05:42→21:16)
[2016-10-22] MEDS: LEVOTHYROXINE 0.0375MG (37.5MCG) PER 1/2 TABLET PO SCH (05:42)
[2016-10-22 06:00] VITALS: BP 140/68
[2016-10-22] MEDS: IPRATROPIUM 0.5MG/ALBUTEROL 2.5MG INH SOL UD 3ML (DUONEB)(J7620) NEB SCH ×2 (08:00→12:00)
[2016-10-22] MEDS: LEVEMIR (INSULIN DETEMIR) 1 UNITS/0.01ML SC SCH (08:09)
[2016-10-22] MEDS: HumaLOG INSULIN (NovoLOG) PER UNIT SC SCH ×4 (08:10→21:00)
[2016-10-22] MEDS: POTASSIUM CHLORIDE 10 MEQ SR TABLET PO SCH (08:10)
[2016-10-22] MEDS: PANTOPRAZOLE 40MG TAB (PROTONIX) PO SCH (08:11)
[2016-10-22] MEDS: DOCUSATE SODIUM 100 MG CAP PO SCH ×2 (08:12→21:15)
[2016-10-22] MEDS: MIRALAX *UNIT DOSE* 17GM PACKET PO SCH (08:13)
[2016-10-22] MEDS: NYSTATIN 100,000 UNITS/GM TOPICAL PWD 15 GM TOP SCH ×2 (08:13→21:16)
[2016-10-22] MEDS: SANTYL OINT 30GM TOP SCH (08:14)
[2016-10-22] MEDS ORDERED: IPRATROPIUM 0.5MG/ALBUTEROL 2.5MG INH SOL UD 3ML (DUONEB)(J7620) NEB PRN (14:30)
[2016-10-22 15:19] LABS: BASO % 1.1 % (0.0-1.0); EOS # 0.1 K/mm3 (0.0-0.50); EOS % 4.5 % (0.0-3.0); LARGE UNSTAINED CELL # 0.1 K/mm3 (0.0-0.4); LARGE UNSTAINED CELL % 2.8 % (0.0-4.0); LYMPH % 32.6 % (24.0-44.0); MEAN CORPUSCULAR VOLUME 90.8 fl (80.0-96.0); MONO # 0.1 K/mm3 (0.0-0.8); MONO % 4.4 % (0.0-5.0); NEUTROPHILS # 1.7 K/mm3 (1.8-7.7); NEUTROPHILS % 54.6 % (36.0-66.0); PLATELET COUNT, AUTOMATED 220 k/mm3 (150-450); RED CELL DISTRIBUTION WIDTH 15.2 % (11.5-14.5)
[2016-10-22 15:47] LABS: ANION GAP 2 MEQ/L (8-16); BLOOD UREA NITROGEN 12 MG/DL (7-18); CALCIUM LEVEL 8.6 MG/DL (8.8-10.2); CARBON DIOXIDE LEVEL 34 MEQ/L (21-32); CHLORIDE LEVEL 105 MEQ/L (98-107); CREATININE FOR GFR 0.73 MG/DL (0.55-1.02); GLOMERULAR FILTRATION RATE > 60.0 (>45); GLUCOSE, FASTING 175 MG/DL (80-110); POTASSIUM SERUM 4.5 MEQ/L (3.5-5.1); SODIUM LEVEL 141 MEQ/L (136-145)
--- NOTE | 2016-10-22 16:13 | IPN ---
DATE: 10/22/2016 SUBJECTIVE: Patient is seen and examined in the room today. Patient is alert and oriented. Able to answer all the questions. Patient stated she has a good appetite, however patient has not been moving around too much, she has only sat up for the meal, otherwise she has been laying in bed. Per patient, patient does not have any significant pain during rest. The pain in the right hip started to get worse when she started to stand up or sit up. Per respiratory therapy, patient has been refusing the nebulizer treatments. Per physical therapy, patient has not been performing as well as expected. OBJECTIVE: VITAL SIGNS: Temperature 98.7, pulse 80, respirations 16, blood pressure 140/68, pulse oximetry 94% in room air. GENERAL: No sign of acute distress. Morbidly obese. Alert and oriented times three. HEENT: Normocephalic, atraumatic. Extraocular motors grossly intact. CARDIOVASCULAR: Regular rate, positive S1, S2. LUNGS: Diminished breath sounds secondary to body habitus, but could not appreciate any wheezes or rhonchi. ABDOMEN: Morbidly obese, soft, nontender, nondistended. Bowel sounds present. EXTREMITIES: No edema. No cyanosis. DERMATOLOGICAL: Multiple ulcers located bilateral knees, left lower abdominal skin folds, and there is mild pressure injury near the buttocks area. The ulcer at the right knee is covered with a scab, there is mild erythema around the edge of the wound, the rest of the ulcers look noninfected, no foul smell, no active drainage noted. There are also a few ulcers located on the elbow. LABORATORY DATA: WBC 3, hemoglobin 10.8, hematocrit 33.8, platelet count 220. Sodium 141, potassium 4.5, chloride 105, carbon dioxide 34, BUN 12, creatinine 0.73, GFR greater than 60, fasting glucose 175, calcium 8.6, magnesium 1.7, C-reactive protein is less than 0.3. ASSESSMENT AND PLAN: 1. Right femur fracture. Patient is not a surgical candidate. Continue medical management. However, patient has not been performing very well with physical therapy. I encouraged patient to participate in physical therapy as much as tolerated. Patient should increase activity level, but per nursing staff patient has been laying in bed most of the time which is not good for her ulcer healing. 2. Multiple pressure injury ulcers. Those pressure ulcers look noninfected at this moment. Continue foam dressing. Patient should be rotated every few hours. 3. Metabolic encephalopathy secondary to sepsis, resolved. 4. History of septic shock, resolved. C-reactive protein is within normal range and patient does not have a white count. 5. Morbid obesity. 6. Acute kidney injury, resolved. 7. History of diarrhea with Enteropathogenic Escherichia (E) coli, resolved. 8. Diabetes, on sliding scale and on consistent carbohydrate diet. 9. Hypothyroidism, on Synthroid. 10. Hyperlipidemia, on statin. 11. Deep venous thrombosis (DVT) prophylaxis, on heparin.
[2016-10-23] MEDS: HEPARIN SOD (PORCINE) 5000 UNITS/ML VIAL SC SCH ×3 (05:30→20:18)
[2016-10-23] MEDS: LEVOTHYROXINE 0.0375MG (37.5MCG) PER 1/2 TABLET PO SCH (05:30)
[2016-10-23 06:00] VITALS: BP 142/71
[2016-10-23] MEDS: MIRALAX *UNIT DOSE* 17GM PACKET PO SCH (08:17)
[2016-10-23] MEDS: HumaLOG INSULIN (NovoLOG) PER UNIT SC SCH ×4 (08:17→20:14)
[2016-10-23] MEDS: LEVEMIR (INSULIN DETEMIR) 1 UNITS/0.01ML SC SCH (08:17)
[2016-10-23] MEDS: POTASSIUM CHLORIDE 10 MEQ SR TABLET PO SCH (08:18)
[2016-10-23] MEDS: DOCUSATE SODIUM 100 MG CAP PO SCH ×2 (08:18→20:18)
[2016-10-23] MEDS: MAGNESIUM OXIDE 400 MG TAB (MAG-OX) PO SCH (08:18)
[2016-10-23] MEDS: PANTOPRAZOLE 40MG TAB (PROTONIX) PO SCH (08:18)
[2016-10-23] MEDS: SANTYL OINT 30GM TOP SCH (08:19)
[2016-10-23] MEDS: NYSTATIN 100,000 UNITS/GM TOPICAL PWD 15 GM TOP SCH ×2 (08:19→20:19)
[2016-10-24] MEDS: LEVOTHYROXINE 0.0375MG (37.5MCG) PER 1/2 TABLET PO SCH (05:58)
[2016-10-24] MEDS: HEPARIN SOD (PORCINE) 5000 UNITS/ML VIAL SC SCH ×3 (05:58→21:25)
[2016-10-24 06:00] VITALS: BP 127/70
[2016-10-24] MEDS: LEVEMIR (INSULIN DETEMIR) 1 UNITS/0.01ML SC SCH (08:54)
[2016-10-24] MEDS: DOCUSATE SODIUM 100 MG CAP PO SCH ×2 (08:54→21:00)
[2016-10-24] MEDS: MAGNESIUM OXIDE 400 MG TAB (MAG-OX) PO SCH (08:54)
[2016-10-24] MEDS: HumaLOG INSULIN (NovoLOG) PER UNIT SC SCH ×4 (08:54→21:00)
[2016-10-24] MEDS: MIRALAX *UNIT DOSE* 17GM PACKET PO SCH (08:55)
[2016-10-24] MEDS: PANTOPRAZOLE 40MG TAB (PROTONIX) PO SCH (08:55)
[2016-10-24] MEDS: NYSTATIN 100,000 UNITS/GM TOPICAL PWD 15 GM TOP SCH ×2 (08:55→21:25)
[2016-10-24] MEDS: POTASSIUM CHLORIDE 10 MEQ SR TABLET PO SCH (08:55)
[2016-10-24] MEDS: SANTYL OINT 30GM TOP SCH (08:56)
[2016-10-24] MEDS: ACETAMINOPHEN TAB 650MG DOSE (2X325MG) PO PRN (13:23)
[2016-10-25 06:00] VITALS: BP 140/72
[2016-10-25] MEDS: HEPARIN SOD (PORCINE) 5000 UNITS/ML VIAL SC SCH ×3 (06:02→20:28)
[2016-10-25] MEDS: LEVOTHYROXINE 0.0375MG (37.5MCG) PER 1/2 TABLET PO SCH (06:02)
[2016-10-25] MEDS: MIRALAX *UNIT DOSE* 17GM PACKET PO SCH (09:00)
[2016-10-25] MEDS: HumaLOG INSULIN (NovoLOG) PER UNIT SC SCH ×4 (09:03→20:27)
[2016-10-25] MEDS: POTASSIUM CHLORIDE 10 MEQ SR TABLET PO SCH (09:03)
[2016-10-25] MEDS: PANTOPRAZOLE 40MG TAB (PROTONIX) PO SCH (09:04)
[2016-10-25] MEDS: DOCUSATE SODIUM 100 MG CAP PO SCH ×2 (09:04→20:27)
[2016-10-25] MEDS: MAGNESIUM OXIDE 400 MG TAB (MAG-OX) PO SCH (09:04)
[2016-10-25] MEDS: LEVEMIR (INSULIN DETEMIR) 1 UNITS/0.01ML SC SCH (09:04)
[2016-10-25] MEDS: ACETAMINOPHEN TAB 650MG DOSE (2X325MG) PO PRN (09:05)
[2016-10-25] MEDS: NYSTATIN 100,000 UNITS/GM TOPICAL PWD 15 GM TOP SCH ×2 (09:05→22:17)
[2016-10-25] MEDS: SANTYL OINT 30GM TOP SCH (10:33)
[2016-10-26] MEDS: HEPARIN SOD (PORCINE) 5000 UNITS/ML VIAL SC SCH ×3 (05:56→21:52)
[2016-10-26] MEDS: LEVOTHYROXINE 0.0375MG (37.5MCG) PER 1/2 TABLET PO SCH (05:56)
[2016-10-26 06:00] VITALS: BP 138/79
[2016-10-26] MEDS: HumaLOG INSULIN (NovoLOG) PER UNIT SC SCH ×4 (07:30→21:00)
[2016-10-26] MEDS: LEVEMIR (INSULIN DETEMIR) 1 UNITS/0.01ML SC SCH (08:34)
[2016-10-26] MEDS: POTASSIUM CHLORIDE 10 MEQ SR TABLET PO SCH (08:35)
[2016-10-26] MEDS: PANTOPRAZOLE 40MG TAB (PROTONIX) PO SCH (08:35)
[2016-10-26] MEDS: MAGNESIUM OXIDE 400 MG TAB (MAG-OX) PO SCH (08:35)
[2016-10-26] MEDS: MIRALAX *UNIT DOSE* 17GM PACKET PO SCH (08:35)
[2016-10-26] MEDS: DOCUSATE SODIUM 100 MG CAP PO SCH ×2 (08:35→21:52)
[2016-10-26] MEDS: NYSTATIN 100,000 UNITS/GM TOPICAL PWD 15 GM TOP SCH ×2 (08:36→21:53)
[2016-10-26] MEDS: SANTYL OINT 30GM TOP SCH (08:36)
[2016-10-27] MEDS: HEPARIN SOD (PORCINE) 5000 UNITS/ML VIAL SC SCH ×3 (05:51→21:26)
[2016-10-27] MEDS: LEVOTHYROXINE 0.0375MG (37.5MCG) PER 1/2 TABLET PO SCH (05:51)
[2016-10-27 06:00] VITALS: BP 122/73
[2016-10-27] MEDS: HumaLOG INSULIN (NovoLOG) PER UNIT SC SCH ×4 (08:27→20:48)
[2016-10-27] MEDS: LEVEMIR (INSULIN DETEMIR) 1 UNITS/0.01ML SC SCH (08:27)
[2016-10-27] MEDS: MIRALAX *UNIT DOSE* 17GM PACKET PO SCH ×2 (08:28→08:38)
[2016-10-27] MEDS: PANTOPRAZOLE 40MG TAB (PROTONIX) PO SCH (08:28)
[2016-10-27] MEDS: MAGNESIUM OXIDE 400 MG TAB (MAG-OX) PO SCH (08:28)
[2016-10-27] MEDS: DOCUSATE SODIUM 100 MG CAP PO SCH ×3 (08:28→20:48)
[2016-10-27] MEDS: POTASSIUM CHLORIDE 10 MEQ SR TABLET PO SCH (08:28)
[2016-10-27] MEDS: NYSTATIN 100,000 UNITS/GM TOPICAL PWD 15 GM TOP SCH ×2 (09:00→21:25)
[2016-10-27] MEDS: SANTYL OINT 30GM TOP SCH (09:00)
[2016-10-28] MEDS: HEPARIN SOD (PORCINE) 5000 UNITS/ML VIAL SC SCH ×3 (05:40→21:37)
[2016-10-28] MEDS: LEVOTHYROXINE 0.0375MG (37.5MCG) PER 1/2 TABLET PO SCH (05:40)
[2016-10-28 05:50] VITALS: BP 135/71
[2016-10-28] MEDS: DOCUSATE SODIUM 100 MG CAP PO SCH ×2 (08:35→21:37)
[2016-10-28] MEDS: HumaLOG INSULIN (NovoLOG) PER UNIT SC SCH ×4 (08:35→21:33)
[2016-10-28] MEDS: MAGNESIUM OXIDE 400 MG TAB (MAG-OX) PO SCH (08:35)
[2016-10-28] MEDS: LEVEMIR (INSULIN DETEMIR) 1 UNITS/0.01ML SC SCH (08:35)
[2016-10-28] MEDS: MIRALAX *UNIT DOSE* 17GM PACKET PO SCH (08:35)
[2016-10-28] MEDS: PANTOPRAZOLE 40MG TAB (PROTONIX) PO SCH (08:35)
[2016-10-28] MEDS: POTASSIUM CHLORIDE 10 MEQ SR TABLET PO SCH (08:35)
[2016-10-28] MEDS: SANTYL OINT 30GM TOP SCH (08:39)
[2016-10-28] MEDS: NYSTATIN 100,000 UNITS/GM TOPICAL PWD 15 GM TOP SCH ×2 (08:39→21:37)
[2016-10-28] MEDS ORDERED: SANT250O8 TOP (12:13)
[2016-10-28] MEDS ORDERED: LEVO75TA4 PO (12:13)
[2016-10-28] MEDS ORDERED: INSUDET SC (12:13)
--- NOTE | 2016-10-28 13:41 | IPNPDOC ---
Text Note Date of Service The patient was seen on 10/28/16. NOTE Subjective: Pt feels well and is more active, and feels stronger. Denies any complaints. No N/V/abd pain. Objective: Vitals: (see below) General: No acute distress, laying comfortably in bed. HEENT: Moist mucous membranes. Neck: No JVD or lymphadenopathy Cardiac: RRR, No murmurs Pulm: Diminished breath sounds bilateral bases. No wheezing, rhonchi Abd: NT/ND + BS. Obese. Left lower fold wound. Ext: No edema or cyanosis. Wounds - sacral, bilateral elbows, bilateral knees, no drainage and healing well. Labs (see below) Images: Assessment/Plan 1. Femur fracture- right. Evaluated by orthopedics and not a surgical candidate at this time given her significant comorbidities and minimal hip pain. Physical therapy was on board. Minimize weight bearing. Patient states she had a mechanical fall when shoveling snow. 2. Decubitus ulcer- present since admission. Has multiple ulcers on bilateral knees, elbows, toes. Wound care. 3. Metabolic encephalopathy- resolved. Secondary to sepsis. 4. Septic shock- resolved. Wound culture with Enterococcus faecalis and Proteus. S/p Levaquin/vancomycin. 5. Morbid obesity 6. Acute kidney injury resolved 7. Diarrhea with enteropathogenic Escherichia coli- resolved 8. Diabetes mellitus-sliding scale insulin 9. Hypothyroidism- continue Synthroid 10. Hyperlipidemia- continue statin DVT prophy: Heparin subcutaneous Will need subacute rehab, with transfer scheduled for Monday. VS,Fishbone, I+O VS, Fishbone, I+O Vital Signs Date Time Temp Pulse Resp B/P Pulse Ox O2 Delivery O2 Flow Rate FiO2 10/28/16 09:00 Room Air 10/28/16 05:50 98.7 87 18 135/71 95 I&O- Last 24 Hours up to 6 AM 10/28/16 06:00 Intake Total 840 ml Output Total 600 ml Balance 240 ml SOFIA NORTON MD Oct 28, 2016 13:41
[2016-10-28 14:00] VITALS: BP 156/98
[2016-10-28] MEDS: ACETAMINOPHEN TAB 650MG DOSE (2X325MG) PO PRN (16:16)
[2016-10-29] MEDS: ACETAMINOPHEN TAB 650MG DOSE (2X325MG) PO PRN (02:05)
[2016-10-29 06:15] VITALS: BP 168/86
[2016-10-29] MEDS: LEVOTHYROXINE 0.0375MG (37.5MCG) PER 1/2 TABLET PO SCH (06:22)
[2016-10-29] MEDS: HEPARIN SOD (PORCINE) 5000 UNITS/ML VIAL SC SCH ×3 (06:22→21:23)
[2016-10-29] MEDS: HumaLOG INSULIN (NovoLOG) PER UNIT SC SCH ×4 (08:51→21:20)
[2016-10-29] MEDS: LEVEMIR (INSULIN DETEMIR) 1 UNITS/0.01ML SC SCH (08:52)
[2016-10-29] MEDS: DOCUSATE SODIUM 100 MG CAP PO SCH ×2 (09:00→21:24)
[2016-10-29] MEDS: MIRALAX *UNIT DOSE* 17GM PACKET PO SCH (09:00)
[2016-10-29] MEDS: PANTOPRAZOLE 40MG TAB (PROTONIX) PO SCH (10:12)
[2016-10-29] MEDS: MAGNESIUM OXIDE 400 MG TAB (MAG-OX) PO SCH (10:12)
[2016-10-29] MEDS: NYSTATIN 100,000 UNITS/GM TOPICAL PWD 15 GM TOP SCH ×2 (10:13→21:24)
[2016-10-29] MEDS: POTASSIUM CHLORIDE 10 MEQ SR TABLET PO SCH (10:13)
[2016-10-29] MEDS: SANTYL OINT 30GM TOP SCH (10:14)
[2016-10-30] MEDS: ACETAMINOPHEN TAB 650MG DOSE (2X325MG) PO PRN (01:19)
[2016-10-30] MEDS: HEPARIN SOD (PORCINE) 5000 UNITS/ML VIAL SC SCH ×3 (05:50→20:56)
[2016-10-30] MEDS: LEVOTHYROXINE 0.0375MG (37.5MCG) PER 1/2 TABLET PO SCH (05:50)
[2016-10-30 06:05] VITALS: BP 144/78
[2016-10-30] MEDS: MAGNESIUM OXIDE 400 MG TAB (MAG-OX) PO SCH (08:45)
[2016-10-30] MEDS: PANTOPRAZOLE 40MG TAB (PROTONIX) PO SCH (08:45)
[2016-10-30] MEDS: HumaLOG INSULIN (NovoLOG) PER UNIT SC SCH ×4 (08:45→21:00)
[2016-10-30] MEDS: LEVEMIR (INSULIN DETEMIR) 1 UNITS/0.01ML SC SCH (08:45)
[2016-10-30] MEDS: MIRALAX *UNIT DOSE* 17GM PACKET PO SCH (08:46)
[2016-10-30] MEDS: POTASSIUM CHLORIDE 10 MEQ SR TABLET PO SCH (08:46)
[2016-10-30] MEDS: DOCUSATE SODIUM 100 MG CAP PO SCH ×2 (08:46→20:56)
[2016-10-30] MEDS: SANTYL OINT 30GM TOP SCH (08:47)
[2016-10-30] MEDS: NYSTATIN 100,000 UNITS/GM TOPICAL PWD 15 GM TOP SCH ×2 (08:47→20:57)
[2016-10-31] MEDS: LEVOTHYROXINE 0.0375MG (37.5MCG) PER 1/2 TABLET PO SCH (05:52)
[2016-10-31] MEDS: HEPARIN SOD (PORCINE) 5000 UNITS/ML VIAL SC SCH ×3 (05:53→22:38)
[2016-10-31 06:00] VITALS: BP 128/80
[2016-10-31] MEDS: LEVEMIR (INSULIN DETEMIR) 1 UNITS/0.01ML SC SCH (08:05)
[2016-10-31] MEDS: POTASSIUM CHLORIDE 10 MEQ SR TABLET PO SCH (08:06)
[2016-10-31] MEDS: MIRALAX *UNIT DOSE* 17GM PACKET PO SCH (08:06)
[2016-10-31] MEDS: PANTOPRAZOLE 40MG TAB (PROTONIX) PO SCH (08:06)
[2016-10-31] MEDS: HumaLOG INSULIN (NovoLOG) PER UNIT SC SCH ×4 (08:06→21:00)
[2016-10-31] MEDS: MAGNESIUM OXIDE 400 MG TAB (MAG-OX) PO SCH (08:06)
[2016-10-31] MEDS: DOCUSATE SODIUM 100 MG CAP PO SCH ×2 (08:06→21:00)
[2016-10-31] MEDS: NYSTATIN 100,000 UNITS/GM TOPICAL PWD 15 GM TOP SCH ×2 (08:07→22:38)
[2016-10-31] MEDS: SANTYL OINT 30GM TOP SCH (08:07)
[2016-11-01] MEDS: LEVOTHYROXINE 0.0375MG (37.5MCG) PER 1/2 TABLET PO SCH (05:32)
[2016-11-01] MEDS: HEPARIN SOD (PORCINE) 5000 UNITS/ML VIAL SC SCH ×3 (05:33→21:27)
[2016-11-01 06:00] VITALS: BP 128/77
[2016-11-01] MEDS: POTASSIUM CHLORIDE 10 MEQ SR TABLET PO SCH (08:06)
[2016-11-01] MEDS: DOCUSATE SODIUM 100 MG CAP PO SCH ×2 (08:07→21:00)
[2016-11-01] MEDS: PANTOPRAZOLE 40MG TAB (PROTONIX) PO SCH (08:07)
[2016-11-01] MEDS: MIRALAX *UNIT DOSE* 17GM PACKET PO SCH (08:07)
[2016-11-01] MEDS: MAGNESIUM OXIDE 400 MG TAB (MAG-OX) PO SCH (08:07)
[2016-11-01] MEDS: HumaLOG INSULIN (NovoLOG) PER UNIT SC SCH ×4 (08:07→20:55)
[2016-11-01] MEDS: SANTYL OINT 30GM TOP SCH (08:08)
[2016-11-01] MEDS: NYSTATIN 100,000 UNITS/GM TOPICAL PWD 15 GM TOP SCH ×2 (08:08→21:28)
[2016-11-01] MEDS: LEVEMIR (INSULIN DETEMIR) 1 UNITS/0.01ML SC SCH (08:08)
[2016-11-02] MEDS: LEVOTHYROXINE 0.0375MG (37.5MCG) PER 1/2 TABLET PO SCH (05:31)
[2016-11-02] MEDS: HEPARIN SOD (PORCINE) 5000 UNITS/ML VIAL SC SCH ×3 (05:32→21:01)
[2016-11-02 06:00] VITALS: BP 144/75
[2016-11-02] MEDS: MAGNESIUM OXIDE 400 MG TAB (MAG-OX) PO SCH (08:05)
[2016-11-02] MEDS: PANTOPRAZOLE 40MG TAB (PROTONIX) PO SCH (08:05)
[2016-11-02] MEDS: POTASSIUM CHLORIDE 10 MEQ SR TABLET PO SCH (08:05)
[2016-11-02] MEDS: HumaLOG INSULIN (NovoLOG) PER UNIT SC SCH ×4 (08:06→20:58)
[2016-11-02] MEDS: MIRALAX *UNIT DOSE* 17GM PACKET PO SCH (08:06)
[2016-11-02] MEDS: DOCUSATE SODIUM 100 MG CAP PO SCH ×2 (08:06→21:01)
[2016-11-02] MEDS: NYSTATIN 100,000 UNITS/GM TOPICAL PWD 15 GM TOP SCH ×2 (08:07→21:01)
[2016-11-02] MEDS: LEVEMIR (INSULIN DETEMIR) 1 UNITS/0.01ML SC SCH (08:07)
[2016-11-02] MEDS: SANTYL OINT 30GM TOP SCH (10:36)
[2016-11-03] MEDS: LEVOTHYROXINE 0.0375MG (37.5MCG) PER 1/2 TABLET PO SCH (05:56)
[2016-11-03] MEDS: HEPARIN SOD (PORCINE) 5000 UNITS/ML VIAL SC SCH ×3 (05:56→20:33)
[2016-11-03 06:00] VITALS: BP 133/79
[2016-11-03 07:15] LABS: MEAN CORPUSCULAR HEMOGLOBIN 29.7 pg (27.0-33.0); MEAN CORPUSCULAR VOLUME 90.1 fl (80.0-96.0); RED CELL DISTRIBUTION WIDTH 14.5 % (11.5-14.5); WHITE BLOOD COUNT 4.8 K/mm3 (4.0-10.0)
[2016-11-03 07:24] LABS: ANION GAP 7 MEQ/L (8-16); BLOOD UREA NITROGEN 14 MG/DL (7-18); CALCIUM LEVEL 9.1 MG/DL (8.8-10.2); CARBON DIOXIDE LEVEL 30 MEQ/L (21-32); CHLORIDE LEVEL 104 MEQ/L (98-107); CREATININE FOR GFR 0.71 MG/DL (0.55-1.02); GLOMERULAR FILTRATION RATE > 60.0 (>45); GLUCOSE, FASTING 118 MG/DL (80-110); MAGNESIUM LEVEL 1.9 MG/DL (1.8-2.4); POTASSIUM SERUM 3.9 MEQ/L (3.5-5.1); SODIUM LEVEL 141 MEQ/L (136-145)
[2016-11-03] MEDS: HumaLOG INSULIN (NovoLOG) PER UNIT SC SCH ×4 (09:35→20:28)
[2016-11-03] MEDS: LEVEMIR (INSULIN DETEMIR) 1 UNITS/0.01ML SC SCH (09:36)
[2016-11-03] MEDS: MAGNESIUM OXIDE 400 MG TAB (MAG-OX) PO SCH (09:36)
[2016-11-03] MEDS: PANTOPRAZOLE 40MG TAB (PROTONIX) PO SCH (09:36)
[2016-11-03] MEDS: POTASSIUM CHLORIDE 10 MEQ SR TABLET PO SCH (09:36)
[2016-11-03] MEDS: NYSTATIN 100,000 UNITS/GM TOPICAL PWD 15 GM TOP SCH ×2 (09:37→20:33)
[2016-11-03] MEDS: SANTYL OINT 30GM TOP SCH (09:37)
[2016-11-03] MEDS: DOCUSATE SODIUM 100 MG CAP PO SCH ×2 (09:40→20:29)
[2016-11-03] MEDS: MIRALAX *UNIT DOSE* 17GM PACKET PO SCH (09:41)
[2016-11-03] MEDS ORDERED: ONDANSETRON 4 MG TAB (S0181) PO PRN (12:45)
--- NOTE | 2016-11-03 21:07 | REP ---
RIGHT HIP, TWO VIEWS: HISTORY: Femoral neck fracture. COMPARISON: 10/07/2016 There is a fracture of the right femoral neck. There is lateral displacement of the distal fracture fragment. There is narrowing of the joint space. Sclerosis is present in the acetabulum. Calcification is present lateral to the acetabulum. This may represent a fracture fragment, ligamentous or tendon calcification. IMPRESSION: Right femoral neck fracture with lateral displacement of the distal fracture fragment. The lateral displacement is slightly increased. Signed by Tristen Leon MD 11/04/2016 07:47 A
--- NOTE | 2016-11-03 21:22 | REP ---
PELVIS, ONE VIEW: HISTORY: Femoral neck fracture. COMPARISON: 10/07/2016. There is a fracture of the right femoral neck. There is lateral displacement of the distal fracture fragment. There is narrowing of the joint space. Sclerosis is present in the acetabulum. A calcified density is present lateral to the acetabulum. This may represent an avulsion fracture fragment or ligamentous or tendon calcification. IMPRESSION: Right femoral neck fracture with lateral displacement of the distal fragment. The lateral displacement is slightly increased. Signed by Tristen Leon MD 11/04/2016 07:47 A
[2016-11-03 22:00] VITALS: BP 157/80
[2016-11-04 06:00] VITALS: BP 147/74
[2016-11-04] MEDS: LEVOTHYROXINE 0.0375MG (37.5MCG) PER 1/2 TABLET PO SCH (06:01)
[2016-11-04] MEDS: HEPARIN SOD (PORCINE) 5000 UNITS/ML VIAL SC SCH ×2 (06:02→12:59)
[2016-11-04 06:54] LABS: MEAN CORPUSCULAR HEMOGLOBIN 30.8 pg (27.0-33.0); MEAN CORPUSCULAR HGB CONC 33.5 g/dl (32.0-36.5); RED CELL DISTRIBUTION WIDTH 14.6 % (11.5-14.5); WHITE BLOOD COUNT 4.9 K/mm3 (4.0-10.0)
[2016-11-04 07:15] LABS: ANION GAP 6 MEQ/L (8-16); BLOOD UREA NITROGEN 13 MG/DL (7-18); CALCIUM LEVEL 8.7 MG/DL (8.8-10.2); CARBON DIOXIDE LEVEL 30 MEQ/L (21-32); CHLORIDE LEVEL 105 MEQ/L (98-107); CREATININE FOR GFR 0.82 MG/DL (0.55-1.02); GLOMERULAR FILTRATION RATE > 60.0 (>45); GLUCOSE, FASTING 142 MG/DL (80-110); POTASSIUM SERUM 4.3 MEQ/L (3.5-5.1); SODIUM LEVEL 141 MEQ/L (136-145)
[2016-11-04] MEDS: MIRALAX *UNIT DOSE* 17GM PACKET PO SCH (09:00)
[2016-11-04] MEDS: DOCUSATE SODIUM 100 MG CAP PO SCH (09:00)
[2016-11-04] MEDS: MAGNESIUM OXIDE 400 MG TAB (MAG-OX) PO SCH (09:21)
[2016-11-04] MEDS: NYSTATIN 100,000 UNITS/GM TOPICAL PWD 15 GM TOP SCH (09:21)
[2016-11-04] MEDS: PANTOPRAZOLE 40MG TAB (PROTONIX) PO SCH (09:21)
[2016-11-04] MEDS: POTASSIUM CHLORIDE 10 MEQ SR TABLET PO SCH (09:21)
[2016-11-04] MEDS: SANTYL OINT 30GM TOP SCH (09:22)
[2016-11-04] MEDS: HumaLOG INSULIN (NovoLOG) PER UNIT SC SCH ×2 (09:23→13:00)
[2016-11-04] MEDS: LEVEMIR (INSULIN DETEMIR) 1 UNITS/0.01ML SC SCH (09:23)
--- NOTE | 2016-11-04 09:51 | IPN ---
DATE: 11/04/2016 The patient is seen and examined today. She is resting comfortably and she says that her hip is doing "great." She says she has no pain at rest and she has only mild discomfort when she first gets out of bed but does not have much pain when she is up and moving around she relates. She is still being treated for multiple ulcers, she has some on each of her anterior knees, she has some around her buttocks. Her exam demonstrates these decubitus ulcers still having a little bit of drainage. There is a scar over the anterior aspect of the right knee. The buttocks ulcers are below the buttock folds at the proximal aspect of her thigh. These are being treated with dressing changes and some type of topical medication. Her hip does not seem to be irritable to range of motion. X-rays reviewed of her AP pelvis and right hip and she does have this femoral neck fracture that is displaced. She has some proximal migration of her femoral shaft. No other obvious fractures noted. At this point this is a very challenging situation. In my opinion she is at very high risk of infection and perioperative complications. I think that the fact that she is not having any significant pain with the hip would argue against hip replacement or hemiarthroplasty. I think that in my hands that this would be too high risk of procedure for postoperative infection involving the prosthesis which I think would make her worse off than she is right now. I think the following risk factors make her a much more complicated case in terms of addressing this fracture operatively: 1. Recent sepsis and pneumonia. 2. Morbid obesity. 3. Multiple open sores and ulcerations. 4. Diabetes mellitus with a recent A1c of 8.4 which is poorly controlled. 5. The fracture is several weeks old which would make it more difficult to mobilize the femur and get the hip reduced. My recommendation is that she be evaluated by [facility] to see if it is something they would feel necessary to undertake and would be willing to undertake as far as surgical management of this hip. She apparently is being transferred to a rehabilitation facility today. I would recommend making arrangements to see either Dr. Min or Dr. Louie Montoya at [facility] [[email or web address] for their expertise and possible surgical treatment for this. Again this is not something I would be comfortable managing operatively, I just feel that the risks are too high and her symptoms are quite limited. I discussed this with her. I would continue deep venous thrombosis (DVT) prophylaxis if she remains sedentary.
--- NOTE | 2016-11-05 15:05 | DSES ---
DATE OF ADMISSION: 10/01/2016 DATE OF DISCHARGE: 11/04/2016 CONSULTANTS: Orthopedic surgery. PROCEDURES: None. COMPLICATIONS: None. ADMISSION/DISCHARGE DIAGNOSES: 1. Right femur fracture. 2. Chronic decubitus ulcer injury at the bilateral knee, elbow, tail, and lower abdomen. 3. Metabolic encephalopathy secondary to sepsis. 4. History of septic shock, possibly secondary to community-acquired, possibly from Enterococcus faecalis and proteus. 5. Morbid obesity. 6. Acute kidney injury. 7. Diarrhea with enteropathogenic Escherichia (E) coli. 8. Diabetes mellitus. 9. Hypothyroidism. Patient is a 61-year-old female, was transferred from [facility] to [facility] with septic shock possibly secondary to community-acquired pneumonia. Patient admitted to intensive care unit (ICU). Prior to arriving at [facility], patient was on Levophed pressor. When patient arrived at [facility], patient was already started on a pressor. Patient was started on broad-spectrum antibiotics and patient was started on aggressive intravenous (IV) hydration. During the diagnostic workup, patient was found to have enteropathogenic Escherichia (E) coli in the gastrointestinal (GI) panel and patient also presented with multiple stage II pressure ulcers throughout the whole body. With medical management, patient was gradually weaned off from the pressors and antibiotics were tailored when all the different results came back. When the pressure ulcer cultures came back proteus and Enterococcus faecalis sensitive to ampicillin, based on the sensitivities. Later, patient had an imaging study done and there was an incidental finding of the right femur fracture and orthopedic surgeon, Dr. González Young, was consulted on 10/07/2016. He recommended continued medical management. At the time, patient was determined to be not a surgical candidate. With medical management, patient's infection is improving; however, patient did not show any significant improvement in her mental status and on 10/07/2016, patient had a lumbar puncture performed. Later, culture came back completely negative. With continued medical management, patient's mentation slowly started to improve. Patient continued to work with physical therapy; however, patient's physical recovery was rather slow and the patient was placed on alternate level of care (ALC) status. Later, when patient's acute infections resolved and orthopedic team re-evaluated the patient, the recommendation was that patient did not need surgery at the moment. Patient will continue with physical therapy. In the future, if patient does not show improvement, then patient will require surgical intervention. The recommendation was patient should be evaluated at [facility] due to patient's multiple severe medical comorbidities. It was recommended Dr. Amarjit Min or Dr. Louie Montoya at [facility] would be possible orthopedic surgeons for Mrs. Miner should she need any future orthopedic surgical intervention. Their contact number is . VITAL SIGNS: Temperature 98.2, pulse 86, respirations 19, blood pressure 147/74, pulse oximetry 97% on room air. LABORATORY DATA: WBC 4.9, hemoglobin 11.8, hematocrit 35.1, platelet count 229. Sodium 141, potassium 4.3, chloride 105, carbon dioxide 30, BUN 13, creatinine 0.82, GFR greater than 60, fasting glucose 142, calcium 8.7. MICROBIOLOGY: Blood cultures obtained 10/01/2016 was negative after five days times two sets. Urine culture obtained on 10/01/2016 was negative. Gastrointestinal (GI) panel 10/01/2016 showed enteropathogenic Escherichia (E) coli. Abdominal wound culture obtained 10/01/2016 showed proteus mirabilis and Enterococcus faecalis. Clostridium (C) difficile PCR 10/03/2016 was negative. Blood cultures 10/04/2016 were negative after five days times two sets Cerebrospinal fluid culture obtained on 10/07/2016 was negative. Wound culture 10/12/2016 showed Enterococcus gallinarum and Staphylococcus coagulase-negative. Proteus mirabilis. Yeast-like organism. IMAGING STUDY: A chest x-ray on 10/02/2016 showed cardiomegaly, scattered atelectasis. Abdominal x-ray 10/06/2016 showed distended small and large bowel. May reflect ileus. Right femoral neck fracture. Right hip x-ray on 10/07/2016 showed femoral neck fracture with mild displacement. Pelvic x-ray 11/03/2016 showed a right femoral neck fracture with lateral displacement of the distal fragment. The lateral displacement is slightly increased. DISCHARGE INSTRUCTIONS: 1. Discharge to [facility]. 2. Activity as tolerated. 3. Patient should be on consistent carbohydrate diet. 4. Patient should follow with her primary care provider within one week. 5. Patient is being re-evaluated by our orthopedic surgeon prior to discharge and no surgery is recommended. 6. Patient should continue with rehabilitation. 7. In the future, should the patient's condition show acute worsening and patient requires orthopedic surgery intervention, [facility] orthopedic surgeons, Dr. Min and Dr. Montoya will be candidates for patient to receive intervention due to patient's complicated medical morbidities. Contact phone for the orthopedic surgeons is . DISCHARGE MEDICATION: - Centa one topically daily - Levemir 50 units subcutaneously - Synthroid 0.0375 mg by mouth daily - aspirin 81 mg by mouth daily - atorvastatin 20 mg by mouth at bedtime - gabapentin 300 mg by mouth twice a day - losartan 50 mg by mouth daily - metformin 1500 mg by mouth daily - omeprazole 40 mg by mouth daily DISCHARGE TIME: Greater than 30 minutes. DISCHARGE CONDITION: Fair.
== END 2016-11-04 13:39 | DRG 720 ==
LOC: M ICU 14:47 → M MSPAV 10-04 16:20
PROVIDERS: ADMIT Internal Medicine; ATTEND Internal Medicine
PROC: 009U3ZX Drainage of Spinal Canal, Percutaneous Approach, Diagnostic (ICD-10-PCS; principal; 2016-10-07)
DX: A41.9 Sepsis, unspecified organism (principal); R65.21 Severe sepsis with septic shock; G93.41 Metabolic encephalopathy; N17.9 Acute kidney failure, unspecified; L89.42 Pressure ulcer of contiguous site of back, buttock and hip, stage 2; S72.001A Fracture of unspecified part of neck of right femur, initial encounter for closed fracture; A04.0 Enteropathogenic Escherichia coli infection; E66.01 Morbid (severe) obesity due to excess calories; Z68.43 Body mass index [BMI] 50.0-59.9, adult; K56.7 Ileus, unspecified; L89.890 Pressure ulcer of other site, unstageable; L89.020 Pressure ulcer of left elbow, unstageable; L89.010 Pressure ulcer of right elbow, unstageable; E03.9 Hypothyroidism, unspecified; E11.9 Type 2 diabetes mellitus without complications; B96.20 Unspecified Escherichia coli [E. coli] as the cause of diseases classified elsewhere; I10 Essential (primary) hypertension; E78.5 Hyperlipidemia, unspecified; X58.XXXA Exposure to other specified factors, initial encounter; Y92.9 Unspecified place or not applicable; Y93.9 Activity, unspecified; Y99.9 Unspecified external cause status; Z79.82 Long term (current) use of aspirin; Z79.899 Other long term (current) drug therapy; B96.4 Proteus (mirabilis) (morganii) as the cause of diseases classified elsewhere; Z79.84 Long term (current) use of oral hypoglycemic drugs